=== PATIENT | female | born 1945 | race Caucasian/White ===

== ENCOUNTER 2024-03-21 23:28 | Inpatient (IN) | payer OTHER, SELFPAY ==
[2024-03-21 19:17] VITALS: BP 194/88
[2024-03-21 19:47] LABS: % Basophils 0.3 % (0-2); % Eosinophils 0.2 % (0-6); % Immature Granulocytes 0.5 % (0-0.5); % Lymphocytes 9.5 % (20.5-51.1); % Monocytes 5.5 % (1.7-9.3); Absolute Basophils 0.1 10^3/uL (0-0.2); Absolute Immature Granulocytes 0.1 10^3/uL (0-0.05); Absolute Lymphocytes 1.7 10^3/uL (1.2-3.4); Absolute Neutrophils 14.9 10^3/uL (1.4-6.5); Hematocrit 32.7 % (37.0-47.0); Hemoglobin 10.3 g/dL (12.0-16.0); Mean Corp Hgb Conc. 31.5 g/dL (33.0-37.0); Mean Corpuscular Hgb 28.2 pg (27.0-31.0); Mean Corpuscular Volume 89.6 fL (81.0-99.0); Mean Platelet Volume 10.1 fL (7.4-10.4); Nucleated Red Blood Cells % 0 %; Platelet Count 548 10^3/uL (130-400); Red Blood Cell Count 3.65 10^6/uL (4.20-5.40); Red Cell Dist. Width 14.5 % (11.5-14.5); White Blood Cell Count 17.7 10^3/uL (4.8-10.8)
[2024-03-21 19:56] LABS: Urine Albumin Trace (Neg - Trace); Urine Bilirubin Negative (Negative); Urine Character Clear (Clear); Urine Color Yellow; Urine Glucose Negative (Negative); Urine Ketone Negative (Negative); Urine Leukocyte 2+ (Negative); Urine Nitrite Negative (Negative); Urine Occult Blood 3+ (Negative); Urine Specific Gravity 1.015 (<1.030); Urine Urobilinogen Negative (Neg - 1+)
[2024-03-21 19:59] VITALS: BMI 26.8
[2024-03-21 20:03] LABS: Urine Triple Phosphate Crystal Present
[2024-03-21 20:04] LABS: Urine Bacteria Moderate (Negative); Urine Red Blood Cell 21-25 /HPF (0-2); Urine White Cell >100 /HPF (0-5)
[2024-03-21 20:07] LABS: ALT (SGPT) 17 U/L (0-35); AST (SGOT) 26 U/L (14-36); Albumin 3.7 g/dl (3.5-5.0); Alkaline Phosphatase 100 U/L (38-126); Blood Urea Nitrogen 20 mg/dl (7-17); Chloride 85 mmol/L (98-107); Estimated Creatinine Clearance 35 ml/min; Glucose 135 mg/dl (70-99); Potassium 2.7 mmol/L (3.5-5.1); Sodium 134 mmol/L (135-145); Total Bilirubin 0.6 mg/dl (0.2-1.3); Total Protein 6.8 g/dl (6.3-8.2); eGFR 46.05
[2024-03-21 20:11] VITALS: BP 193/81
[2024-03-21 20:12] LABS: Lactic Acid 2.7 mmol/L (0.7-2.0)
[2024-03-21 20:23] LABS: Calcium 15.6 mg/dl (8.4-10.2); Carbon Dioxide 38 mmol/L (22-30)
--- NOTE | 2024-03-21 20:36 | ED.GENMED ---
History of Present Illness
<Radha Tapia PA-C - Last Filed: 03/21/24 20:54>
General
Chief Complaint: Abdominal Symptoms
Source: family
Exam Limitations: clinical condition
Time Seen by Provider: 03/21/24 20:14
Nursing documentation reviewed up to this point in time: agreed with
History of Present Illness
History of Present Illness:
78-year-old female with a history of colonic perforation secondary to diverticulitis status post colectomy with a colostomy 1.5 month ago at [facility], was hospitalized for about 1 month and then has been home for about 2 weeks presenting for
change in mental status, weakness fatigue, nausea and vomiting x 2. Patient apparently had a good week her first week after being discharged home. She is been home at her house for her daughters been staying with her to help her. Her daughter's
been giving her medications. She has been doing better this week with her eating and her walking around unassisted. But about 2 days ago she seemed not really herself and was not eating well so she went to the doctor. The primary care doctor
diagnosed her with a UTI and put her on an unknown antibiotic which she has been taking since then. She has had 5 total doses but starting last night after the evening dose she vomited. Then today she slept most of the day except for a follow-up
appointment with her surgeon which went okay. She came home and did have some lunch and kept it down and then this evening she got a evening dose of her antibiotic and immediately vomited. Patient is able to answer some questions but she is a
little disoriented at times, she has got a dry mouth, she has been complaining of nausea. There is been no complaints of focal abdominal pain. She has had normal output in her ostomy.
According to the nurse the patient was mildly hypoxic so she was put on 2 L of oxygen, she had an occasional cough. Currently while hospitalized she had oxygen and went home with a tank but the daughter does not know why she needed that and she has
not been using it much since discharge
<Yeni Mazariegos MD - Last Filed: >
Travel History
Have you had any contact with someone who has COVID-19?: No
Do you have any symptoms of coronavirus? Fever > 100 degrees, chills, cough, shortness of breath, sore throat, loss of taste or smell, muscle aches, or headache?: No
Course
<Radha Tapia PA-C - Last Filed: 03/21/24 20:54>
Orders/Labs/Results
Orders:
Orders
03/21/24 19:30
Electrocardiogram (*1) Urgent
Reason for Study: Other
Other Reason for Exam: Possible Sepsis
Cardiac Monitoring- Treatment ONCE
EKG- Treatment ONCE
IV Insert/Care/Rem.- Treatment PRN
Straight cath- Treatment ONCE
O2 Therapy [RESP] Urgent
Titrate/Wean O2 to maintain O2 sat greater than (%): 93
Special Instructions: TO MAINTAIN CONTINUOUS O2 SATS > OR = 93%
Pulse Ox/cont/shift [RESP] Urgent
Quantity: 1
Special Instructions: CONTINUOUS
03/21/24 19:35
Complete Blood Count/With Diff Urgent
Comprehensive Metabolic Panel Urgent
Lactic Acid Q4H
Comment: ON ICE, CANCEL 2ND ORDER IF FIRST LACTIC ACID LEVEL <2
Magnesium Urgent
Blood Culture Q30M
[place] Source: Blood/Venous
Specimen Description:
Comment: FROM 2 SEPARATE SITES
03/21/24 19:47
Urinalysis Reflex To Culture Urgent
Date Specimen was Collected: 03/21/24
Time Specimen was Collected: 19:30
Urine Microscopic Reflex Cult Urgent
Urine Culture Urgent
[place] Source: U
Specimen Description:
Date Specimen was Collected: 03/21/24
Time Specimen was Collected: 19:30
03/21/24 20:00
Blood Culture Q30M
[place] Source: Blood/Venous
Specimen Description:
Comment: FROM 2 SEPARATE SITES
03/21/24 20:34
Add On- LAB Urgent
Tests Added?: magnesium
0.9% Sodium Chloride 1000 ml [Nss] 1,000 ml IV BOLUS
CR Chest - 2 Views Urgent
Comment:
Reason For Exam: cough, hypoxia
03/21/24 20:35
CT Abd/Pel (IV only)-DH only Urgent
Comment:
Reason For Exam: fever, uti, recent surgery, sepsis
03/21/24 20:39
Ionized Calcium Urgent
PTH [Intact PTH Includes Calcium] Urgent
03/21/24 20:41
Piperacillin/Tazo 3.375 Gram [Zosyn] 3.375 gram in 50 ml IV NOW
03/21/24 23:30
Lactic Acid Q4H
Comment: ON ICE, CANCEL 2ND ORDER IF FIRST LACTIC ACID LEVEL <2
Abnormal Lab Results
03/21/24 03/21/24
19:35 19:47
WBC 17.7 H 10^3/uL
(4.8-10.8)
RBC 3.65 L 10^6/uL
(4.20-5.40)
Hgb 10.3 L g/dL
(12.0-16.0)
Hct 32.7 L %
(37.0-47.0)
MCHC 31.5 L g/dL
(33.0-37.0)
Plt Count 548 H 10^3/uL
(130-400)
Abs Immat Gran (auto) 0.1 H 10^3/uL
(0-0.05)
Absolute Neuts (auto) 14.9 H 10^3/uL
(1.4-6.5)
Absolute Monos (auto) 1.0 H 10^3/uL
(0.1-0.6)
Neutrophils % 84.0 H %
(42.2-75.2)
Lymphocytes % 9.5 L %
(20.5-51.1)
Sodium 134 L mmol/L
(135-145)
Potassium 2.7 L* mmol/L
(3.5-5.1)
Chloride 85 L mmol/L
(98-107)
Carbon Dioxide 38 H mmol/L
(22-30)
BUN 20 H mg/dl
(7-17)
Creatinine 1.2 H mg/dL
(0.6-1.0)
Glucose 135 H mg/dl
(70-99)
Lactic Acid 2.7 H mmol/L
(0.7-2.0)
Calcium 15.6 H* mg/dl
(8.4-10.2)
Ur Occult Blood Reflex 3+ A
(Negative)
Leukocyte Esterase Rfl 2+ A
(Negative)
Urine RBC 21-25 A /HPF
(0-2)
Urine WBC (Reflex) >100 A /HPF
(0-5)
Urine Bacteria (Reflex) Moderate A
(Negative)
03/21/24 19:35
03/21/24 19:35
Vital Signs
Initial and Last Documented VS:
Initial Vital Signs
Temp Pulse Resp BP Pulse Ox
98.3 F 92 20 194/88 97
03/21/24 19:17 03/21/24 19:17 03/21/24 19:17 03/21/24 19:17 03/21/24 19:17
Last Documented Vital Signs
Temp Pulse Resp BP Pulse Ox
98.3 F 92 20 194/88 91
03/21/24 19:17 03/21/24 19:17 03/21/24 19:17 03/21/24 19:17 03/21/24 20:10
<Yeni Mazariegos MD - Last Filed: >
Orders/Labs/Results
Orders:
Orders
03/21/24 19:30
Electrocardiogram (*1) Urgent
Reason for Study: Other
Other Reason for Exam: Possible Sepsis
Cardiac Monitoring- Treatment ONCE
EKG- Treatment ONCE
IV Insert/Care/Rem.- Treatment PRN
Straight cath- Treatment ONCE
O2 Therapy [RESP] Urgent
Titrate/Wean O2 to maintain O2 sat greater than (%): 93
Special Instructions: TO MAINTAIN CONTINUOUS O2 SATS > OR = 93%
Pulse Ox/cont/shift [RESP] Urgent
Quantity: 1
Special Instructions: CONTINUOUS
03/21/24 19:35
Complete Blood Count/With Diff Urgent
Comprehensive Metabolic Panel Urgent
Lactic Acid Q4H
Comment: ON ICE, CANCEL 2ND ORDER IF FIRST LACTIC ACID LEVEL <2
Magnesium Urgent
Blood Culture Q30M
[place] Source: Blood/Venous
Specimen Description:
Comment: FROM 2 SEPARATE SITES
03/21/24 19:47
Urinalysis Reflex To Culture Urgent
Date Specimen was Collected: 03/21/24
Time Specimen was Collected: 19:30
Urine Microscopic Reflex Cult Urgent
Urine Culture Urgent
[place] Source: U
Specimen Description:
Date Specimen was Collected: 03/21/24
Time Specimen was Collected: 19:30
03/21/24 20:00
Blood Culture Q30M
[place] Source: Blood/Venous
Specimen Description:
Comment: FROM 2 SEPARATE SITES
03/21/24 20:34
Add On- LAB Urgent
Tests Added?: magnesium
0.9% Sodium Chloride 1000 ml [Nss] 1,000 ml IV BOLUS
CR Chest - 2 Views Urgent
Comment:
Reason For Exam: cough, hypoxia
03/21/24 20:35
CT Abd/Pel (IV only)-DH only Urgent
Comment:
Reason For Exam: fever, uti, recent surgery, sepsis
03/21/24 20:39
Ionized Calcium Urgent
PTH [Intact PTH Includes Calcium] Urgent
03/21/24 20:41
Piperacillin/Tazo 3.375 Gram [Zosyn] 3.375 gram in 50 ml IV NOW
03/21/24 23:30
Lactic Acid Q4H
Comment: ON ICE, CANCEL 2ND ORDER IF FIRST LACTIC ACID LEVEL <2
Abnormal Lab Results
03/21/24 03/21/24
19:35 19:47
WBC 17.7 H 10^3/uL
(4.8-10.8)
RBC 3.65 L 10^6/uL
(4.20-5.40)
Hgb 10.3 L g/dL
(12.0-16.0)
Hct 32.7 L %
(37.0-47.0)
MCHC 31.5 L g/dL
(33.0-37.0)
Plt Count 548 H 10^3/uL
(130-400)
Abs Immat Gran (auto) 0.1 H 10^3/uL
(0-0.05)
Absolute Neuts (auto) 14.9 H 10^3/uL
(1.4-6.5)
Absolute Monos (auto) 1.0 H 10^3/uL
(0.1-0.6)
Neutrophils % 84.0 H %
(42.2-75.2)
Lymphocytes % 9.5 L %
(20.5-51.1)
Sodium 134 L mmol/L
(135-145)
Potassium 2.7 L* mmol/L
(3.5-5.1)
Chloride 85 L mmol/L
(98-107)
Carbon Dioxide 38 H mmol/L
(22-30)
BUN 20 H mg/dl
(7-17)
Creatinine 1.2 H mg/dL
(0.6-1.0)
Glucose 135 H mg/dl
(70-99)
Lactic Acid 2.7 H mmol/L
(0.7-2.0)
Calcium 15.6 H* mg/dl
(8.4-10.2)
Ur Occult Blood Reflex 3+ A
(Negative)
Leukocyte Esterase Rfl 2+ A
(Negative)
Urine RBC 21-25 A /HPF
(0-2)
Urine WBC (Reflex) >100 A /HPF
(0-5)
Urine Bacteria (Reflex) Moderate A
(Negative)
03/21/24 19:35
03/21/24 19:35
Vital Signs
Initial and Last Documented VS:
Initial Vital Signs
Temp Pulse Resp BP Pulse Ox
98.3 F 92 20 194/88 97
03/21/24 19:17 03/21/24 19:17 03/21/24 19:17 03/21/24 19:17 03/21/24 19:17
Last Documented Vital Signs
Temp Pulse Resp BP Pulse Ox
98.3 F 92 20 194/88 91
03/21/24 19:17 03/21/24 19:17 03/21/24 19:17 03/21/24 19:17 03/21/24 20:10
ED Attending Note
<Yeni Mazariegos MD - Last Filed: >
-
Portions of this chart may have been created with voice recognition software.� Occasional wrong word or��sound alike� substitutions may have occurred due to the inherent limitations of voice recognition software.
Discharge Plan
Departure
Prescriptions:
No Action
multivitamin [TAB A RONNIE] Tablet
1 tab PO DAILY
sennosides [senna] 8.6 mg Tablet
17.2 mg PO DAILY
acetaminophen 325 mg Tablet
650 mg PO Q6H PRN (Reason: mild pain/fever)
levothyroxine 25 mcg Tablet
25 mcg PO DAILY
diltiazem HCl 120 mg Tablet
120 mg PO HS
losartan 25 mg Tablet
25 mg PO DAILY
docusate sodium 100 mg Capsule
100 mg PO BID
budesonide 0.5 mg/2 mL Suspension For Nebulization
0.5 mg INHALATION R Q12
furosemide 20 mg Tablet
20 mg PO DAILY
Saccharomyces boulardii [Florastor] 250 mg Capsule
250 mg PO BID
cholecalciferol (vitamin D3) [Vitamin D3] 25 mcg (1,000 unit) Tablet
25 mcg PO DAILY
calcium carbonate-vitamin D3 [Calcium 500 + D (D3)] 500 mg-3.125 mcg (125 unit) Tablet
1 tab PO BID
apixaban 5 mg Tablet
5 mg PO BID
Probiotic 100 billion cell Capsule
1 cap PO MEALS
nitrofurantoin macrocrystal 100 mg Capsule
100 mg PO Q12
bupropion HCl 150 mg Tablet Extended Release 24 Hr
150 mg PO DAILY
Referrals:
UNKNOWN - PT DOES,NOT KNOW [Family Provider] -
Interventions
Interventions:
*Risk Screen - Suicide Last Done: 03/21/24 19:17
*General Assessment Last Done: 03/21/24 19:17
*Neglect/Abuse Screening Last Done: 03/21/24 19:17
ED- Fall Risk Assessment Last Done: 03/21/24 19:17
*ED COVID-19 Vaccine History Last Done: 03/21/24 19:17
NX-Fhuxwh-Lcgexbvtqr Assessment Last Done: 03/21/24 20:10
ED-Female Genitourinary Assessment Last Done: 03/21/24 20:10
Discharge Date and Time
Print Language: TELUGU
[2024-03-21 21:06] LABS: Magnesium 1.9 mg/dl (1.6-2.3)
[2024-03-21] MEDS: NSS 1000 IV (21:06)
[2024-03-21] MEDS: ZOSYN 50 IV (21:06)
[2024-03-21 21:13] LABS: Ionized Calcium 1.97 mMOL/L (1.15-1.33)
[2024-03-21 21:53] LABS: Calcium 15.2 mg/dl (8.4-10.2)
--- NOTE | 2024-03-21 22:18 | HPS.HSE ---
Family Physician
-
Family Physician: Murphy Mcqueen
Chief Complaint
-
Lethargy and altered mental status
History of Present Illness
This is a 78-year-old female who has past medical history that is significant for a recent diverticulitis complicated by colonic perforation status post colectomy and colostomy about 1.5 months ago at outside hospital ([facility]) who now
presents to the emergency department for worsening sleepiness fatigue weakness and nausea vomiting.
Patient apparently had improving symptoms after discharge about 2 weeks ago. However this week she has had increasing sleepiness weakness and fatigue. Today she had nausea and vomiting x 2 that was nonbloody and nonbilious. She denies any acute
abdominal pain. She denies any changes in the color or consistency is from the output of the ostomy bag. The site around the ostomy had no leakage. There is no worsening erythema or exudate. Family reports that she has had complaints of chills
over the last few days. 2 days ago she was diagnosed with a UTI by her primary care physician and was started on antibiotics for which she had taken 5 doses. The exact antibiotic is unknown at this time. Patient was seen in follow-up by surgeon
today who had no issues with the colostomy.
Per family patient output at 22 to almost nothing. She had continued to take her medications which includes calcium supplementation at home. No geno fevers measured at home. They denied any shortness of breath. However the patient is on no
supplemental oxygen since discharge. At the time of discharge he was placed on 2 L however they have not been giving the supplemental oxygen at home. She reports a mild nonproductive cough.
Patient denies having any flank pain. She denies any dysuria hematuria. The diagnosis of UTI was missed based on altered mental status weakness as well as a positive UA. No known cultures.
On arrival in the emergency department the patient was afebrile with temp of 98.3, she was hypertensive to 194/88 with a pulse of 92 and respirate of 20. She was in a 90% on room air.
ECG showed normal sinus rhythm at a rate of [address] or T wave changes. No QT C prolongation either. Labs are notable for a urinalysis that had positive pyuria, hematuria and bacteriuria. She had leukocytosis to 17,000, hemoglobin was
10.3 and platelet count of 548. Chemistries were notable for a potassium of 2.7, a bicarb of 38, BUN of 20 and a creatinine of 1.2 with a glucose of 135. LFTs within normal limits. Calcium was elevated at 15.6 with ionized calcium of 1.97. Mild
elevation in lactic acid to 2.7. CT abd/pelvis pending.
Medical History
Past Medical History
Past Medical History: Reports Arrhythmia, HTN, Hypercholesterolemia and Hypothyroidism
Past Surgical History: Reports Bowel Resection
Social History
Unable to obtain full social history at this time due to: Acuity
Tobacco: Non-smoker
Alcohol: None
Drug: None
Personal: Single
Living: With Family
Employment: Retired
Family History
Family History: Not pertinent
Allergies / Home Medications
Allergies reflects when Allergies were last updated in [facility].
Home Medications with original date entered in [facility]
Allergy/Medication List:
Allergies
Allergy/AdvReac Type Severity Reaction Status Date / Time
No Known Allergies Allergy Verified 03/21/24 19:28
Home Medications
Lactobacillus 40-Bifidobact 3-S.thermophilus 100 billion cell capsule (Probiotic) 1 cap PO MEALS 03/21/24
Saccharomyces boulardii 250 mg capsule (Florastor) 250 mg PO BID 03/21/24
acetaminophen 325 mg tablet 650 mg PO Q6H PRN mild pain/fever 03/21/24
apixaban 5 mg tablet 5 mg PO BID 03/21/24
budesonide 0.5 mg/2 mL suspension for nebulization 0.5 mg inhalation R Q12 03/21/24
bupropion HCl 150 mg 24 hr tablet, extended release 150 mg PO DAILY 03/21/24
calcium carbonate 500 mg-vitamin D3 3.125 mcg (125 unit) tablet 1 tab PO BID 03/21/24
cholecalciferol (vitamin D3) 25 mcg (1,000 unit) tablet (Vitamin D3) 25 mcg PO DAILY 03/21/24
diltiazem HCl 120 mg tablet 120 mg PO HS 03/21/24
docusate sodium 100 mg capsule 100 mg PO BID 03/21/24
furosemide 20 mg tablet 20 mg PO DAILY 03/21/24
levothyroxine 25 mcg tablet 25 mcg PO DAILY 03/21/24
losartan 25 mg tablet 25 mg PO DAILY 03/21/24
multivitamin 1 tab PO DAILY 03/21/24
nitrofurantoin macrocrystal 100 mg capsule 100 mg PO Q12 03/21/24
sennosides 8.6 mg tablet (senna) 17.2 mg PO DAILY 03/21/24
Review of Systems
-
History Source: Patient and Family
Constitutional: Reports Fatigue, Sleep Disturbance and Chills
EENT: Reports No Symptoms
Respiratory: Reports No Symptoms
Cardiac: Reports No Symptoms
Abdomen/GI: Reports Nausea and Vomiting
: Reports No Symptoms
Musculoskeletal: Reports No Symptoms
Skin: Reports No Symptoms
Neurological: Reports No Symptoms
Endocrine: Reports No Symptoms
Hematologic/Lymphatic: Reports No Symptoms
Psych: Reports No Symptoms
Physical Exam
Vital Signs
Vital Signs
Temp Pulse Resp BP Pulse Ox
98.3 F 92 20 194/88 91
03/21/24 19:17 03/21/24 19:17 03/21/24 19:17 03/21/24 19:17 03/21/24 20:10
Physical Exam
General: Well Developed, No Apparent Distress and Chills
HEENT: NormoCephalic, Anicteric, Atraumatic, PERRLA and Oxygen
Respiratory: Clear
Cardiac: S1/S2 and Regular Rhythm
Breast: Deferred by me
GI: Soft, Non Tender, Non Distended, Normal Bowel Sounds and Ostomy
Rectal: Deferred by Provider
Genito-urinary: No costovertebral tender
Musculoskeletal: No Clubbing, No Cyanosis and No Edema
Skin: Warm
Neuro: Awake, Oriented (x3) and Nonfocal/grossly intact
Hematologic/Lymphatic: No Lymphadenopathy
Psych: Calm
Laboratory Results
-
03/21/24 19:35
03/21/24 19:35
Laboratory Results
Lactic Acid 2.7 mmol/L (0.7-2.0) H 03/21/24 19:35
Total Bilirubin 0.6 mg/dl (0.2-1.3) 03/21/24 19:35
AST 26 U/L (14-36) 03/21/24 19:35
ALT 17 U/L (0-35) 03/21/24 19:35
Alkaline Phosphatase 100 U/L (38-126) 03/21/24 19:35
Data Reviewed
-
CT Scan: Report Reviewed by me
Lab Data: Labs Reviewed by me
Old Records: Reviewed
Impression/Plan
-
IMPRESSION:
PLAN:
--- NOTE | 2024-03-21 22:34 | ED.GENMED ---
History of Present Illness
General
Chief Complaint: Abdominal Symptoms
Source: patient
Exam Limitations: none
Time Seen by Provider: 03/21/24 20:14
Nursing documentation reviewed up to this point in time: agreed with
Travel History
Have you had any contact with someone who has COVID-19?: No
Do you have any symptoms of coronavirus? Fever > 100 degrees, chills, cough, shortness of breath, sore throat, loss of taste or smell, muscle aches, or headache?: No
History of Present Illness
History of Present Illness:
The patient is a 78-year-old female who had a recent diverticulitis complicated by colonic perforation and was hospitalized for several weeks at [facility]. The patient is status post colostomy. Patient arrives with family due to
increased sleepiness, fatigue, generalized weakness and nausea and vomiting. Patient experienced 2 episodes of nonbloody vomiting today. Patient denies any worsening abdominal pain. She denies any burning when she urinates. She denies headache
and sore throat. She denies cough.
Past History
Past History
ED Past Medical History: HTN and Other (Diverticulitis)
ED Past Surgical History: Bowel resection
Social History
Tobacco: Non-smoker
Alcohol: None
Drug: None
Personal: Other
Living: with family
Employment: Other
Family History
Family History: Other
Review of Systems
Review of Systems
Allergies reviewed?: Yes
Other source history: family
All Other Systems: ROS reviewed and negative except as documented in HPI and ROS
Constitutional: Reports fatigue
EENT: Reports no symptoms
Respiratory: Reports no symptoms
Cardiac: Reports no symptoms
ABD/GI: Reports nausea and vomiting
: Reports no symptoms
Musculoskeletal: Reports no symptoms
Skin: Reports no symptoms
Neurological: Reports no symptoms
Endocrine: Reports no symptoms
Hematologic/Lymphatic: Reports no symptoms
Psychiatric: Reports no symptoms
Phy Exam
Physical Exam
Physical Exam:
Physical Exam
General: Patient is fully awake, conversational but appears disheveled
Neck: supple.
Heart: s1/s2 regular rate and rhythm,
Lungs: no acute respiratory distress. clear bilaterally
Abdomen: Abdomen is slightly distended. Colostomy bag appears dry and intact
Neuro: alert and oriented. no focal neurological deficits
Skin: no rash
Psychiatric: well kept. interactive and cooperative
Extremities: Trace bilateral edema in legs. Negative Homans' sign.
Course
Orders/Labs/Results
Orders:
Orders
03/21/24 19:30
Electrocardiogram (*1) Urgent
Reason for Study: Other
Other Reason for Exam: Possible Sepsis
Cardiac Monitoring- Treatment ONCE
EKG- Treatment ONCE
IV Insert/Care/Rem.- Treatment PRN
Straight cath- Treatment ONCE
O2 Therapy [RESP] Urgent
Titrate/Wean O2 to maintain O2 sat greater than (%): 93
Special Instructions: TO MAINTAIN CONTINUOUS O2 SATS > OR = 93%
Pulse Ox/cont/shift [RESP] Urgent
Quantity: 1
Special Instructions: CONTINUOUS
03/21/24 19:35
Complete Blood Count/With Diff Urgent
Comprehensive Metabolic Panel Urgent
Lactic Acid Q4H
Comment: ON ICE, CANCEL 2ND ORDER IF FIRST LACTIC ACID LEVEL <2
Magnesium Urgent
Blood Culture Q30M
[place] Source: Blood/Venous
Specimen Description:
Comment: FROM 2 SEPARATE SITES
03/21/24 19:47
Urinalysis Reflex To Culture Urgent
Date Specimen was Collected: 03/21/24
Time Specimen was Collected: 19:30
Urine Microscopic Reflex Cult Urgent
Urine Culture Urgent
[place] Source: U
Specimen Description:
Date Specimen was Collected: 03/21/24
Time Specimen was Collected: 19:30
03/21/24 20:34
Add On- LAB Urgent
Tests Added?: magnesium
0.9% Sodium Chloride 1000 ml [Nss] 1,000 ml IV BOLUS
CR Chest - 2 Views Urgent
Comment:
Reason For Exam: cough, hypoxia
03/21/24 20:35
CT Abd/Pel (IV only)-DH only Urgent
Comment:
Reason For Exam: fever, uti, recent surgery, sepsis
03/21/24 20:41
Piperacillin/Tazo 3.375 Gram [Zosyn] 3.375 gram in 50 ml IV NOW
03/21/24 21:04
Ionized Calcium Urgent
PTH [Intact PTH Includes Calcium] Urgent
Blood Culture Q30M
[place] Source: Blood/Venous
Specimen Description:
Comment: FROM 2 SEPARATE SITES
03/21/24 22:30
Obtain Records As Directed
Dates of Information to be Released: [facility]. 01/26/2024 to 03/21/2024
Type of Information Requested: Entire Record
03/21/24 23:30
Lactic Acid Q4H
Comment: ON ICE, CANCEL 2ND ORDER IF FIRST LACTIC ACID LEVEL <2
Abnormal Lab Results
03/21/24 03/21/24 03/21/24
19:35 19:47 21:04
WBC 17.7 H 10^3/uL
(4.8-10.8)
RBC 3.65 L 10^6/uL
(4.20-5.40)
Hgb 10.3 L g/dL
(12.0-16.0)
Hct 32.7 L %
(37.0-47.0)
MCHC 31.5 L g/dL
(33.0-37.0)
Plt Count 548 H 10^3/uL
(130-400)
Abs Immat Gran (auto) 0.1 H 10^3/uL
(0-0.05)
Absolute Neuts (auto) 14.9 H 10^3/uL
(1.4-6.5)
Absolute Monos (auto) 1.0 H 10^3/uL
(0.1-0.6)
Neutrophils % 84.0 H %
(42.2-75.2)
Lymphocytes % 9.5 L %
(20.5-51.1)
Sodium 134 L mmol/L
(135-145)
Potassium 2.7 L* mmol/L
(3.5-5.1)
Chloride 85 L mmol/L
(98-107)
Carbon Dioxide 38 H mmol/L
(22-30)
BUN 20 H mg/dl
(7-17)
Creatinine 1.2 H mg/dL
(0.6-1.0)
Glucose 135 H mg/dl
(70-99)
Lactic Acid 2.7 H mmol/L
(0.7-2.0)
Calcium 15.6 H* mg/dl 15.2 H* mg/dl
(8.4-10.2) (8.4-10.2)
Ionized Calcium 1.97 H* mMOL/L
(1.15-1.33)
Ur Occult Blood Reflex 3+ A
(Negative)
Leukocyte Esterase Rfl 2+ A
(Negative)
Urine RBC 21-25 A /HPF
(0-2)
Urine WBC (Reflex) >100 A /HPF
(0-5)
Urine Bacteria (Reflex) Moderate A
(Negative)
03/21/24 19:35
03/21/24 19:35
Vital Signs
Initial and Last Documented VS:
Initial Vital Signs
Temp Pulse Resp BP Pulse Ox
98.3 F 92 20 194/88 97
03/21/24 19:17 03/21/24 19:17 03/21/24 19:17 03/21/24 19:17 03/21/24 19:17
Last Documented Vital Signs
Temp Pulse Resp BP Pulse Ox
98.3 F 92 20 194/88 91
03/21/24 19:17 03/21/24 19:17 03/21/24 19:17 03/21/24 19:17 03/21/24 20:10
MDM/Problems Addressed
Differential Diagnosis Includes:
UTI, bowel perforation, hyponatremia
MDM/Problems Addressed:
Patient presents with acute generalized weakness, fatigue, and vomiting
Chronic conditions affecting care: Previous abdomnial surgery
Acute Exacerbation and/or Progression of Chronic Illness:
Patient is acutely hypertensive, however, there is no sign clinically of CHF or neurological deficit
Acute Exacerbation and/or Progression of Chronic Illness: HTN
*Radiology
Radiology exam reviewed: radiology read reviewed
*Pulse Oximetry
Patient hypoxic: yes
*EKG
Interpreted by ED Provider?: Yes
Comparison EKG: no comparison EKG present
Rate: normal
Rhythm: sinus
[place]: left axis deviation
Interval: normal interval
QRS Pattern: normal QRS
Ischemia: non-specific ST changes
*Furniture Removalist'S Assistant Interpretation
Rate: normal
Interpretation: normal
Rhythm: sinus
*Critical Care Note
Total Time (30-74mins, 75-104mins- exclusive of procedures): 45 minutes
comment:
45 minutes critical care given to the patient including frequent reassessments of the patient, reviewing her blood work, CT report, discussing the case with the patient's son-in-law as well as reviewing the case with hospitalist
Data Reviewed
Source: patient and family
Patient Management
Social determinants of health affecting care: Living situation and Strong social support
Discussion with other providers: Hospitalist
ED Attending Note
-
Portions of this chart may have been created with voice recognition software.� Occasional wrong word or��sound alike� substitutions may have occurred due to the inherent limitations of voice recognition software.
Discharge Plan
Departure
Patient Disposition: Admit
Date of Disposition: 03/21/24
Time of Disposition: 23:08
Admit to: Telemetry
Presentation/result/management discussed w/ accepting MD/DO: Hospitalist
Condition: Fair
Covid-19: Not Applicable
Discharge Problem:
UTI (urinary tract infection), Sepsis, Acute hypercalcemia, Acute hypokalemia
Prescriptions:
No Action
multivitamin [TAB A RONNIE] Tablet
1 tab PO DAILY
sennosides [senna] 8.6 mg Tablet
17.2 mg PO DAILY
acetaminophen 325 mg Tablet
650 mg PO Q6H PRN (Reason: mild pain/fever)
levothyroxine 25 mcg Tablet
25 mcg PO DAILY
diltiazem HCl 120 mg Tablet
120 mg PO HS
losartan 25 mg Tablet
25 mg PO DAILY
docusate sodium 100 mg Capsule
100 mg PO BID
budesonide 0.5 mg/2 mL Suspension For Nebulization
0.5 mg INHALATION R Q12
furosemide 20 mg Tablet
20 mg PO DAILY
Saccharomyces boulardii [Florastor] 250 mg Capsule
250 mg PO BID
cholecalciferol (vitamin D3) [Vitamin D3] 25 mcg (1,000 unit) Tablet
25 mcg PO DAILY
calcium carbonate-vitamin D3 [Calcium 500 + D (D3)] 500 mg-3.125 mcg (125 unit) Tablet
1 tab PO BID
apixaban 5 mg Tablet
5 mg PO BID
Probiotic 100 billion cell Capsule
1 cap PO MEALS
nitrofurantoin macrocrystal 100 mg Capsule
100 mg PO Q12
bupropion HCl 150 mg Tablet Extended Release 24 Hr
150 mg PO DAILY
Referrals:
UNKNOWN - PT DOES,NOT KNOW [Unknown Provider] -
Interventions
Interventions:
*Risk Screen - Suicide Last Done: 03/21/24 19:17
*General Assessment Last Done: 03/21/24 19:17
*Neglect/Abuse Screening Last Done: 03/21/24 19:17
ED- Fall Risk Assessment Last Done: 03/21/24 19:17
*ED COVID-19 Vaccine History Last Done: 03/21/24 19:17
NA-Fvngjw-Rlprhkogie Assessment Last Done: 03/21/24 20:10
ED-Female Genitourinary Assessment Last Done: 03/21/24 20:10
Discharge Date and Time
Print Language: SWEDISH
--- NOTE | 2024-03-21 22:37 | HPS.HSE ---
Family Physician
-
Family Physician: Murphy Mcqueen
Chief Complaint
-
Nausea vomiting, lethargy and altered mental status
History of Present Illness
This is a 78-year-old female with a past medical history that is significant for a recent perforated diverticulitis status post colectomy and end colostomy about 1.5 months ago at [facility] who now presents to the emergency department
with a number of complaints including weakness fatigue and nausea vomiting and chills.
Patient spent about 1 month tolerating hospital and was discharged about 2 weeks ago. Initially was doing well. However over the last week she has had decreasing p.o. intake, worsening weakness fatigue and sleepiness as well as 1 day of nausea and
vomiting. The vomiting was nonbloody and nonbilious. She denied any abdominal pain. She denies any diarrhea. There has been no change in the output of her ostomy. She had chills at home but denies any geno fevers. Patient reported that she
was seen by PMD about 2 days ago and was diagnosed with a UTI. She was started on antibiotics (unknown) and had taken 5 doses. Patient herself denies dysuria, incontinence, flank pain or urinary frequency. She denies prior history of recurrent
urinary tract infections.
She was seen by her surgeon today. No abnormalities noted in terms of the surgical procedure. The site was without dehiscence, exudate or erythema. The ostomy bag was intact. She had no acute abdominal symptoms including abdominal pain.
[facility] the patient was on 2 L of oxygen. However oxygen was not continued. She arrived in the emergency department slightly hypoxic 90%. Improved to 90% on 2 L. She denies any cough.
In the ED she was afebrile with a temp of 98.3, hypertensive to 194/88, pulse rate was 92 respiratory was 20 and oxygen saturation was 90% on room air. ECG with normal sinus rhythm at a rate of [address] or T wave changes and no QTc
prolongation. She had a positive UA with pyuria, bacteriuria and hematuria. Labs are notable for leukocytosis to 17,000 with a left shift. Hemoglobin was stable at 10.3 platelet count of 548. Electrolytes are notable for a potassium of 2.7,
bicarb of 38, BUN of 20 and a creatinine of 1.2 (unknown baseline). Calcium was elevated at 15.6 with an is calcium of 1.97. LFTs within normal limits.
Medical History
Past Medical History
Past Medical History: Reports HTN
Past Surgical History: Reports Bowel Resection
Social History
Tobacco: Non-smoker
Alcohol: None
Drug: None
Living: With Family
Employment: Retired
Family History
Family History: Not pertinent
Allergies / Home Medications
Allergies reflects when Allergies were last updated in [facility].
Home Medications with original date entered in [facility]
Allergy/Medication List:
Allergies
Allergy/AdvReac Type Severity Reaction Status Date / Time
No Known Allergies Allergy Verified 03/21/24 19:28
Home Medications
Lactobacillus 40-Bifidobact 3-S.thermophilus 100 billion cell capsule (Probiotic) 1 cap PO MEALS 03/21/24
Saccharomyces boulardii 250 mg capsule (Florastor) 250 mg PO BID 03/21/24
acetaminophen 325 mg tablet 650 mg PO Q6H PRN mild pain/fever 03/21/24
apixaban 5 mg tablet 5 mg PO BID 03/21/24
budesonide 0.5 mg/2 mL suspension for nebulization 0.5 mg inhalation R Q12 03/21/24
bupropion HCl 150 mg 24 hr tablet, extended release 150 mg PO DAILY 03/21/24
calcium carbonate 500 mg-vitamin D3 3.125 mcg (125 unit) tablet 1 tab PO BID 03/21/24
cholecalciferol (vitamin D3) 25 mcg (1,000 unit) tablet (Vitamin D3) 25 mcg PO DAILY 03/21/24
diltiazem HCl 120 mg tablet 120 mg PO HS 03/21/24
docusate sodium 100 mg capsule 100 mg PO BID 03/21/24
furosemide 20 mg tablet 20 mg PO DAILY 03/21/24
levothyroxine 25 mcg tablet 25 mcg PO DAILY 03/21/24
losartan 25 mg tablet 25 mg PO DAILY 03/21/24
multivitamin 1 tab PO DAILY 03/21/24
nitrofurantoin macrocrystal 100 mg capsule 100 mg PO Q12 03/21/24
sennosides 8.6 mg tablet (senna) 17.2 mg PO DAILY 03/21/24
Review of Systems
-
History Source: Patient and Family
Constitutional: Reports Fatigue, Sleep Disturbance and Chills
EENT: Reports No Symptoms
Respiratory: Reports No Symptoms
Cardiac: Reports No Symptoms
Abdomen/GI: Reports Nausea and Vomiting
: Reports No Symptoms
Musculoskeletal: Reports No Symptoms
Skin: Reports No Symptoms
Neurological: Reports Weakness
Hematologic/Lymphatic: Reports No Symptoms
Psych: Reports Calm
Physical Exam
Vital Signs
Vital Signs
Temp Pulse Resp BP Pulse Ox
98.3 F 92 20 194/88 91
03/21/24 19:17 03/21/24 19:17 03/21/24 19:17 03/21/24 19:17 03/21/24 20:10
Physical Exam
General: Well Developed, Well Nourished, No Apparent Distress and Chills
HEENT: NormoCephalic, Anicteric, Atraumatic, PERRLA, Grill Conjunctivae, Neck Nontender and Oxygen
Respiratory: Clear
Cardiac: S1/S2 and Regular Rhythm
Breast: Deferred by me
GI: Soft, Non Tender, Non Distended, Normal Bowel Sounds and Ostomy
Rectal: Deferred by Provider
Genito-urinary: No costovertebral tender
Musculoskeletal: No Clubbing, No Cyanosis and No Edema
Skin: Warm
Neuro: AO x 3 and Nonfocal/grossly intact
Hematologic/Lymphatic: No Lymphadenopathy
Psych: Calm
Laboratory Results
-
03/21/24 19:35
03/21/24 19:35
Laboratory Results
Lactic Acid 2.7 mmol/L (0.7-2.0) H 03/21/24 19:35
Total Bilirubin 0.6 mg/dl (0.2-1.3) 03/21/24 19:35
AST 26 U/L (14-36) 03/21/24 19:35
ALT 17 U/L (0-35) 03/21/24 19:35
Alkaline Phosphatase 100 U/L (38-126) 03/21/24 19:35
Data Reviewed
-
CT Scan: Report Reviewed by me
Medical Tests (Nuc Med, Echo, EKG etc): Image Personally Visualized and interpreted
Lab Data: Labs Reviewed by me
Old Records: Requested
Impression/Plan
-
IMPRESSION:
78 F with h/o recent colonic diverticulitis with perforation s/p colectomy and end colostomy 1.5 months ago at [facility]. She is here with fatigue, weakness, decreased po intake, chills. Seen by surgeon today and no findings of any abnormality
at surgical site. Seen by pmd 2 days ago and diagnosed with UTI s/p abx x 5 doses (unknown med). She is here with multiple issues including cystitis/pyelonephritis, hypercalcemia, hypokalemia, dehydration, alkalosis and possibly stone.
PLAN:
1. Cystitis - Complicated cystitis with possibly pyelonephritis. Presumed failure of outpatient antibiotics. Possibly complicated by kidney stones in the setting of hypercalcemia.
- admitting to telemetry due to electrolyte abnormalities
- blood, urine cx sent
- agree with continuation of zosyn for now pending CT scan to rule out any acute intraabdominal process
- rule out kidney stones on w/ CT scan
2. 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
- IV NS at 125 ml/hr for now (hypertensive)
- diet as tolerated.
- holding calcium carbonate
3. Hypercalcemia - Patient dehydrated and on continued vitamid d and calcium supplementation. Moderate hypercalcemia with iCa of 1.97.
- given symptoms and limited ability to give fluids will give calcitonin
- continue iv fluids
- check ipth and vitamin d
- holding calcium and vitamin d supplementation
4. Hypokalemia - Suspect due to dehydration and on low dose furosemide. Magnesium level of 1.9 ok.
- replete K (40meq iv and 40meq po)
5. HTN - Patient quite hypertensive to 200 systolic. No acute symptoms.
- continue losartan 20
- diltiazem 120
- iv hydralazine 10mg prn SBP > 180
6. AFIB - Patient on apixaban 5 bid and diltiazem. Likely new dgx afib but family unsure. Rate controlled currently.
- continue ac and diltiazem for now
- requested records from outside hospital
7. Colectomy - Despite examination earlier by surgeon, CT scan shows multiple findings (Inflammation and foci of soft tissue gas along the midline anterior abdominal wall incision, which may be postoperative or infectious.
2. Segments of infectious or inflammatory enteritis of the distal small bowel.
3. Left hemicolectomy and left upper quadrant colostomy.
4. Mild ill-defined inflammatory fat stranding throughout the mesenteric fat of the abdomen.
5. Small airspace opacity in the left lower lobe for which differential considerations would include mild pneumonitis/pneumonia, a pulmonary infarction, or other inflammatory process)
- continue iv zosyn
- surgery consult in am
- check procalcitionin
-holding buproproprion
DVT PPX - apixaban
Code status - Full Code
[2024-03-21] MEDS: KLOR-CON 40 MEQ PO (23:31)
[2024-03-22] VITALS (9 sets, daily range): BP systolic 141–214; BP diastolic 75–97; BMI 25.4
--- NOTE | 2024-03-22 00:04 | ED.GENMED ---
History of Present Illness
General
Chief Complaint: Abdominal Symptoms
Source: patient
Exam Limitations: none
Time Seen by Provider: 03/21/24 20:14
Nursing documentation reviewed up to this point in time: agreed with
Travel History
Have you had any contact with someone who has COVID-19?: No
Do you have any symptoms of coronavirus? Fever > 100 degrees, chills, cough, shortness of breath, sore throat, loss of taste or smell, muscle aches, or headache?: No
History of Present Illness
History of Present Illness:
78 y/o F with h/o recent perforated diverticulitis requiring colectomy approx > 1 mo ago at [facility]
hospitalized for 1 mo
d/c home about 2 weeks ago
seems to be worsening in the past 2 days with fatigue, nausea, sleepiness, and went to PCP 2 days ago and was told she had UTI
given unknown abx x 5 doses but started vomiting yesterday after night time dose and then was able to keep down 1 dose today but then vomited again after the PM dose
she has had genrealiezd fatigue, confusion, nausea, sleepiness
she went to her surgeon during the day and had a check up and was doin well
but this everning she is worse
pt has not had fever, diarrhea, bloody stool, abdominal pain, cough, headache
she had been wearin go2 while in the hosptial but then didn't need it at home.
Past History
Past History
ED Past Medical History: HTN and Other (Diverticulitis)
ED Past Surgical History: Bowel resection
Social History
Tobacco: Non-smoker
Alcohol: None
Drug: None
Personal: Other
Living: with family
Employment: Other
Family History
Family History: Other
Review of Systems
Review of Systems
Allergies reviewed?: Yes
All Other Systems: Not applicable
Phy Exam
Physical Exam
Physical Exam:
GENERAL: sleepy, groggy
EYE: pupils equal and reactive
NECK: Supple
ENT: o/p clr, dry moth.
CARDIAC: Regular rate and rhythm .
LUNGS: Clear breath sounds bilaterally, no acute respiratory distress, no wheezes/rales/rhonchi
ABDOMEN: Soft, incision healing, no dehiscence; left colostomy stoma pink, brown stool in bag without focal tenderness, no r/g, no cvat, normal bowel sounds
NEUROLOGICAL: Alert and oriented, no focal neuro deficits
SKIN: Warm and dry, skin intact. incisino closed
MUSCULOSKELETAL: No edema, well perfused. neg paty's sign
PSYCH: Normal and appropriate interaction.
Course
Orders/Labs/Results
Orders:
Orders
03/21/24 19:30
Electrocardiogram (*1) Urgent
Reason for Study: Other
Other Reason for Exam: Possible Sepsis
Cardiac Monitoring- Treatment ONCE
EKG- Treatment ONCE
IV Insert/Care/Rem.- Treatment PRN
Straight cath- Treatment ONCE
O2 Therapy [RESP] Urgent
Titrate/Wean O2 to maintain O2 sat greater than (%): 93
Special Instructions: TO MAINTAIN CONTINUOUS O2 SATS > OR = 93%
Pulse Ox/cont/shift [RESP] Urgent
Quantity: 1
Special Instructions: CONTINUOUS
03/21/24 19:35
Complete Blood Count/With Diff Urgent
Comprehensive Metabolic Panel Urgent
Lactic Acid Q4H
Comment: ON ICE, CANCEL 2ND ORDER IF FIRST LACTIC ACID LEVEL <2
Magnesium Urgent
Blood Culture Q30M
PEY[place] Source: Blood/Venous
Specimen Description:
Comment: FROM 2 SEPARATE SITES
03/21/24 19:47
Urinalysis Reflex To Culture Urgent
Date Specimen was Collected: 03/21/24
Time Specimen was Collected: 19:30
Urine Microscopic Reflex Cult Urgent
Urine Culture Urgent
PEYTON Source: U
Specimen Description:
Date Specimen was Collected: 03/21/24
Time Specimen was Collected: 19:30
03/21/24 20:34
Add On- LAB Urgent
Tests Added?: magnesium
0.9% Sodium Chloride 1000 ml [Nss] 1,000 ml IV BOLUS
CR Chest - 2 Views Urgent
Comment:
Reason For Exam: cough, hypoxia
03/21/24 20:35
CT Abd/Pel (IV only)-DH only Urgent
Comment:
Reason For Exam: fever, uti, recent surgery, sepsis
03/21/24 20:41
Piperacillin/Tazo 3.375 Gram [Zosyn] 3.375 gram in 50 ml IV NOW
03/21/24 21:04
Ionized Calcium Urgent
PTH [Intact PTH Includes Calcium] Urgent
Blood Culture Q30M
PE[place] Source: Blood/Venous
Specimen Description:
Comment: FROM 2 SEPARATE SITES
03/21/24 22:30
Obtain Records As Directed
Dates of Information to be Released: [facility]. 01/26/2024 to 03/21/2024
Type of Information Requested: Entire Record
03/21/24 22:56
Admit/Transfer Patient As Directed
Co-Sign Provider:
Level of Care: Inpatient admission
Assign to:: Telemetry
Physician / Group: Hospitalist
Diagnosis: Pyelonephritis, hypercalcema
Reason for Telemetry: Other
Other Reason for Telemetry: hypokalemia
Date to Stop Telemetry: 03/23/24
Time to Stop Telemetry: 11:00
Reason for Hospitalization: Pyelonephritis, failure of outpatient tx
Expected length of stay greater than two midnights?: Yes
ELOS- Estimated Length of Stay in days: 2
I certify the patient meets the requirements for IP care: Yes
03/21/24 23:00
Code Status As Directed
Resuscitation Status: Full Code
03/21/24 23:18
Potassium Chloride Powder [Klor-Con] 40 meq PO NOW STA
Potassium Chloride [KCl] 20 meq 0.9% Sodium Chloride 150 ml [Nss] 150 ml IV NOW
03/21/24 23:30
Lactic Acid Q4H
Comment: ON ICE, CANCEL 2ND ORDER IF FIRST LACTIC ACID LEVEL <2
03/22/24 03:00
Potassium Chloride [KCl] 20 meq 0.9% Sodium Chloride 150 ml [Nss] 150 ml IV NOW
03/23/24 11:00
DC Protocol for Telemetry ONCE
Abnormal Lab Results
03/21/24 03/21/24 03/21/24
19:35 19:47 21:04
WBC 17.7 H 10^3/uL
(4.8-10.8)
RBC 3.65 L 10^6/uL
(4.20-5.40)
Hgb 10.3 L g/dL
(12.0-16.0)
Hct 32.7 L %
(37.0-47.0)
MCHC 31.5 L g/dL
(33.0-37.0)
Plt Count 548 H 10^3/uL
(130-400)
Abs Immat Gran (auto) 0.1 H 10^3/uL
(0-0.05)
Absolute Neuts (auto) 14.9 H 10^3/uL
(1.4-6.5)
Absolute Monos (auto) 1.0 H 10^3/uL
(0.1-0.6)
Neutrophils % 84.0 H %
(42.2-75.2)
Lymphocytes % 9.5 L %
(20.5-51.1)
Sodium 134 L mmol/L
(135-145)
Potassium 2.7 L* mmol/L
(3.5-5.1)
Chloride 85 L mmol/L
(98-107)
Carbon Dioxide 38 H mmol/L
(22-30)
BUN 20 H mg/dl
(7-17)
Creatinine 1.2 H mg/dL
(0.6-1.0)
Glucose 135 H mg/dl
(70-99)
Lactic Acid 2.7 H mmol/L
(0.7-2.0)
Calcium 15.6 H* mg/dl 15.2 H* mg/dl
(8.4-10.2) (8.4-10.2)
Ionized Calcium 1.97 H* mMOL/L
(1.15-1.33)
Ur Occult Blood Reflex 3+ A
(Negative)
Leukocyte Esterase Rfl 2+ A
(Negative)
Urine RBC 21-25 A /HPF
(0-2)
Urine WBC (Reflex) >100 A /HPF
(0-5)
Urine Bacteria (Reflex) Moderate A
(Negative)
03/21/24 19:35
03/21/24 19:35
Vital Signs
Initial and Last Documented VS:
Initial Vital Signs
Temp Pulse Resp BP Pulse Ox
98.3 F 92 20 194/88 97
03/21/24 19:17 03/21/24 19:17 03/21/24 19:17 03/21/24 19:17 03/21/24 19:17
Last Documented Vital Signs
Temp Pulse Resp BP Pulse Ox
98.3 F 72 21 187/92 98
03/21/24 19:17 03/22/24 00:15 03/22/24 00:15 03/22/24 00:00 03/22/24 00:00
MDM/Problems Addressed
Differential Diagnosis Includes:
urosepsis, hypokalemia, dehydratino, bacteriemia
MDM/Problems Addressed:
78 y/o F with h/o recent colon resection
presnets with nasua and fatigue
2 days worsening - n/v x 2
dx uti by pcp 2 days ago on abx
afebrile, not hypotensive, sleeping but arousable, somewhat drowsy, dry appearing, abdomen with well healing incision and colostomy that appears pink, brown stool in the bag
nontender abdomen
urine is +
hypercalcemia and hypokalemia
unclear etiology for elevated calcium - she does take oral calcium supp
mag normal
ivf, k repletion and abx for presumed urosepsis
*Critical Care Note
Total Time (30-74mins, 75-104mins- exclusive of procedures): Not Applicable
ED Attending Note
-
Portions of this chart may have been created with voice recognition software.� Occasional wrong word or��sound alike� substitutions may have occurred due to the inherent limitations of voice recognition software.
Discharge Plan
Departure
Patient Disposition: Admit
Date of Disposition: 03/21/24
Time of Disposition: 23:08
Admit to: Telemetry
Presentation/result/management discussed w/ accepting MD/DO: Hospitalist
Condition: Fair
Covid-19: Not Applicable
Discharge Problem:
UTI (urinary tract infection), Sepsis, Acute hypercalcemia, Acute hypokalemia
Interventions
Interventions:
*Risk Screen - Suicide Last Done: 03/21/24 19:17
*General Assessment Last Done: 03/21/24 19:17
*Neglect/Abuse Screening Last Done: 03/21/24 19:17
ED- Fall Risk Assessment Last Done: 03/21/24 19:17
*ED COVID-19 Vaccine History Last Done: 03/21/24 19:17
ZD-Iuzskh-Fqtfwxmbgm Assessment Last Done: 03/21/24 20:10
ED-Female Genitourinary Assessment Last Done: 03/21/24 20:10
[2024-03-22 00:36] LABS: Lactic Acid 1.5 mmol/L (0.7-2.0)
[2024-03-22] MEDS: NSS 1000 IV ×2 (01:06→15:03)
[2024-03-22] MEDS: ZOSYN 50 IV ×4 (01:13→19:51)
[2024-03-22] MEDS: CALCIMAR/CALCITONIN 400 UNITS/ 2 ML 100 UNITS IM ×3 (01:30→19:49)
[2024-03-22] MEDS: ZOFRAN 4 MG IV (02:18)
[2024-03-22] MEDS: KCL 270 MEQ IV ×2 (02:28→16:10)
[2024-03-22 06:00] LABS: Hemoglobin 9.8 g/dL (12.0-16.0); Mean Corp Hgb Conc. 31.6 g/dL (33.0-37.0); Mean Corpuscular Hgb 28.6 pg (27.0-31.0); Mean Corpuscular Volume 90.4 fL (81.0-99.0); Mean Platelet Volume 10.3 fL (7.4-10.4); Platelet Count 522 10^3/uL (130-400); Red Blood Cell Count 3.43 10^6/uL (4.20-5.40); Red Cell Dist. Width 14.5 % (11.5-14.5); White Blood Cell Count 15.4 10^3/uL (4.8-10.8)
[2024-03-22 06:50] LABS: Blood Urea Nitrogen 16 mg/dl (7-17); Calcium 13.9 mg/dl (8.4-10.2); Carbon Dioxide 39 mmol/L (22-30); Chloride 97 mmol/L (98-107); Estimated Creatinine Clearance 34 ml/min; Glucose 141 mg/dl (70-99); Magnesium 1.9 mg/dl (1.6-2.3); Potassium 3.2 mmol/L (3.5-5.1); Sodium 141 mmol/L (135-145); eGFR 51.11
[2024-03-22] MEDS: SYNTHROID 25 MCG PO (07:40)
[2024-03-22] MEDS: PULMICORT 0.5 MG INH ×2 (07:53→20:50)
[2024-03-22] MEDS: SENOKOT 17.1999999999999993 MG PO (08:06)
[2024-03-22] MEDS: COZAAR 25 MG PO (08:06)
[2024-03-22] MEDS: COLACE 100 MG PO ×2 (08:07→19:50)
[2024-03-22] MEDS: ELIQUIS 5 MG PO ×2 (08:07→19:50)
--- NOTE | 2024-03-22 11:45 | CON.GS ---
Addendum entered and electronically signed by Yoan Shook MD 03/22/24 12:42:
I saw and examined the patient.
The [employer]'s note was reviewed and I agree with the note.
Comment: No abdominal complaint. CC seems to be confusion and fatigue. Abd exam benign. Well healed scar. Imaging without acute intra-abdominal findings requiring surgical mgmt. No role for surgery here, suspect UTI is the source. surgery will s/o,
pls call with ?s
Original Note:
Consultation
-
Date/Time Consultation Requested: 03/22/24 0126
Requesting Provider: Katarzyna Brown
Performing Provider: Krys Shook
Reason for Consultation: s/p colectomy at [facility], possibly incision site abscess vs post op
Medical History
-
Chief Complaint: confusion, tired
History of Present Illness:
This is a 78 yo female who was admitted 02/11/24 to [facility] with septic shock from perforated diverticulitis who underwent Lida's procedure at that time for management. Her course of stay was complicated by development of PE for which she
has been on Apixaban for management. She was discharged to SNF on O2 therapy and subsequently discharged to home with family. She was followed by endocrinology for hypothyroidism as well during her hospital stay with TSH of 37.8. She presents this
admission through the ED with reported increasing fatigue and nausea and vomiting. She was also reportedly recently seen by her surgeon in follow up with no issues noted during her visit. On exam, she denies active nausea. She reports that she is
confused. She is able to state the date and her name but was unsure where she was. Her incision is intact and well approximated. There is a pinpoint area along the incision with some minimal SSF drainage just below the umbilicus without purulence
noted. There is no erythema. The colostomy is pink, budded and with stool/flatus noted within the appliance. She is denying abdominal pain currently.
Past Medical History
Past Medical History: Arrhythmias (afib), Diverticulitis, HTN, Hypercholesterolemia, Hypothyroidism and Other (PE 01/2024)
Past Surgical History: Bowel Resection (Lida's January 2024)
Social History
Tobacco: Non-Smoker
Alcohol: None
Family History
Family History: Reviewed & Not Pertinent
Allergies / Home Medications
Allergy/AdvReac Type Severity Reaction Status Date / Time
No Known Allergies Allergy Verified 03/21/24 19:28
�Medication �Instructions �Recorded �Confirmed �Type
Lactobacillus 40-Bifidobact 1 cap PO MEALS probiotic 03/21/24 03/21/24 History
3-S.thermophilus 100 billion cell
capsule (Probiotic)
Saccharomyces boulardii 250 mg 250 mg PO BID probiotic 03/21/24 03/21/24 History
capsule (Florastor)
acetaminophen 325 mg tablet 650 mg PO Q6H PRN mild pain/fever 03/21/24 03/21/24 History
apixaban 5 mg tablet 5 mg PO BID Blood Clot 03/21/24 03/21/24 History
Prevention/Tx
budesonide 0.5 mg/2 mL suspension 0.5 mg inhalation R Q12 03/21/24 03/21/24 History
for nebulization Lung/Breathing Issues
bupropion HCl 150 mg 24 hr tablet, 150 mg PO DAILY mental health 03/21/24 03/21/24 History
extended release
calcium carbonate 500 mg-vitamin 1 tab PO BID Supplement 03/21/24 03/21/24 History
D3 3.125 mcg (125 unit) tablet
cholecalciferol (vitamin D3) 25 25 mcg PO DAILY Supplement 03/21/24 03/21/24 History
mcg (1,000 unit) tablet (Vitamin
D3)
diltiazem HCl 120 mg tablet 120 mg PO HS Blood Pressure 03/21/24 03/21/24 History
docusate sodium 100 mg capsule 100 mg PO BID Constipation 03/21/24 03/21/24 History
furosemide 20 mg tablet 20 mg PO DAILY Fluid 03/21/24 03/21/24 History
Retention/Swelling
levothyroxine 25 mcg tablet 25 mcg PO DAILY Thyroid 03/21/24 03/21/24 History
losartan 25 mg tablet 25 mg PO DAILY Blood Pressure 03/21/24 03/21/24 History
multivitamin 1 tab PO DAILY Supplement 03/21/24 03/21/24 History
nitrofurantoin macrocrystal 100 mg 100 mg PO Q12 urinary tract 03/21/24 03/21/24 History
capsule infection
sennosides 8.6 mg tablet (senna) 17.2 mg PO DAILY Constipation 03/21/24 03/21/24 History
Review of Systems
-
Unable to obtain full review of systems at this time due to: Acuity
History Source: Patient, Family and Other (Prior hospitalization records)
All other systems: Negative unless noted
A 10 point review of systems was completed, and was negative except as per HPI.
Physical Exam
Vital Signs
Temp Pulse Resp BP Pulse Ox
97.4 F 63 16 171/75 100
03/22/24 07:30 03/22/24 09:24 03/22/24 07:57 03/22/24 09:24 03/22/24 07:57
03/21/24 03/22/24 03/23/24
06:59 06:59 06:59
Actual Weight 64.909 kg
Body Mass Index (BMI) 25.4
Lab Results
03/22/24 05:53
03/22/24 05:53
WBC 15.4 10^3/uL (4.8-10.8) H 03/22/24 05:53
Hgb 9.8 g/dL (12.0-16.0) L 03/22/24 05:53
Hct 31.0 % (37.0-47.0) L 03/22/24 05:53
Plt Count 522 10^3/uL (130-400) H 03/22/24 05:53
Abs Immat Gran (auto) 0.1 10^3/uL (0-0.05) H 03/21/24 19:35
Neutrophils % 84.0 % (42.2-75.2) H 03/21/24 19:35
Physical Exam
General: Other (disheveled)
HEENT: Normocephalic; Negative Moist Mucous Membranes
Respiratory: Non Labored Respirations
GI: Soft, Non Tender, Non Distended, Incisions (well approximated midline incision which is healing well. small area just below umbilicus with ssf driaing. No purulence or erythema. No fluctuance or induration. ) and Other (Stoma pink, budded,
viable and with flatus/stool outputs in appliance)
Skin: Warm and Dry
Neuro: Awake, Alert and Other (ox2, needed reoriented to place)
Psych: Calm
Data Reviewed
-
CT Scan: Image Personally Visualized and interpreted, Report Reviewed by me, Discussed with Physician, Discussed with Patient and Discussed with Family
Labs: Labs Reviewed by me, Discussed with Physician, Discussed with Patient and Discussed with Family
Old Records: Reviewed
Assessment / Plan
-
Assessment:
This is a 78 yo female who was admitted 02/11/24 to [facility] with septic shock from perforated diverticulitis who underwent Lida's procedure at that time for management. Her course of stay was complicated by development of new onset AFib as
well as PE for which she has been on Apixaban for management. She was discharged to SNF on O2 therapy and subsequently discharged to home with family.
She presents this admission through the ED with reported increasing fatigue and nausea and vomiting. She is confused and lethargic but awakens to name and able to be reoriented. Work up with leukocytosis, electrolyte disturbances and abnormal UA. On
antibiotics for possible UTI and PNA. Seen in consult today as abdominal CT imaging reviewed with ?enteritis and some inflammation underlying the incision. Stoma with good output and abdominal exam relatively benign. Midline surgical incision is
healing well without evidence of infection or dehiscence.
Plan:
No indication for surgical intervention at this time
Continue with local incisional and stoma care
Continue regular diet as tolerated
ABX as per primary team
Surgery team to follow peripherally, please call with questions and concerns
--- NOTE | 2024-03-22 12:27 | WOUNDNOTE ---
[facility] RN NOTE: Reviewed chart and met with patient. Patients ostomy is intact. No drainage or leaking noted. Patient uses pouch # [id number] and barrier # [id number]. Stoma is budded with good output. Ostomy supplies at bedside. Patient also with stage 2 PI vs
abrasions of buttocks and sacrum. Wound beds are pink with surrounding erythema discoloration. Silicone foam dressing maintained. Patient is able to roll when asked and changes position frequently in bed. Patient on regular diet with BMI of 25.
Heels intact and adhesive foam applied. Heels off-loaded with pillows under calves. RN Obdulia given update. Will follow as needed.
--- NOTE | 2024-03-22 13:41 | W.PN.HOSP.TC ---
Today's Communication/Plan
-
consult renal
cont IVF
consider endocrine consult
cont zosyn
Assessment / Plan
Assessment / Plan
pt is a 78 year old female
weakness/fatigue/sleepiness/n/v--could be infectious as UA positive but urine culture no growth--had been on outpt abx (unknown which one) so culture may not be accurate; could be due to hypercalcemia (ca 15 with high ionized calcium)--cont zosyn
and IVF for now--CT scan without mention of renal stons
Dehydration - decreased po intake with contraction alkalosis--cont IV--diet as tolerated--holding calcium carbonate
Hypothyroid -- TSH 21.7--increase synthroid to 50 mcg from 25
Hypercalcemia - Patient dehydrated and on continued vitamin D and calcium supplementation--s/p calcitonin, cont IVF--ionozed ca high--consult renal--may need endo as well--iPTH pending, vitamin D level low
Hypokalemia - Suspect due to dehydration and on low dose furosemide--mag WNL--replete
Essential HTN - Patient quite hypertensive to 200 systolic on admission--cont losartan, IV hydralazine and on diltiazem too
paroxysmal AFIB - Patient on apixaban 5 bid and diltiazem-- Rate controlled currently--continue eliquis and diltiazem for now--requested records from outside hospital
Colectomy - Despite examination earlier by outside surgeon in their office, CT scan shows multiple findings (Inflammation and foci of soft tissue gas along the midline anterior abdominal wall incision, which may be postoperative or infectious)--cont
IV zosyn--apprec surgery input--nothing to do
DVT PPX - apixaban
Code status - Full Code
Anticipated Discharge: > 48 hours
Subjective/Interval History
-
Date of Service: March 22, 2024
pt answers question but tired
Objective Data
-
Labs:
Laboratory Results
03/22/24
05:53
WBC 15.4 H
Hgb 9.8 L
Hct 31.0 L
Plt Count 522 H
Sodium 141
Potassium 3.2 L
Chloride 97 L
Carbon Dioxide 39 H
BUN 16
Creatinine 1.1 H
Glucose 141 H
Calcium 13.9 H*
Vital Signs:
max temp for 24 hours
03/21/24
19:17
Temp 98.3 F
Laboratory Tests
03/21/24 03/22/24
21:04 05:53
Vitamin D 25-Hydroxy 28.0 L
TSH 21.70 H
PTH Intact Pending
Vital Signs
Temp Pulse Resp BP Pulse Ox
97.7 F 72 14 159/97 97
03/22/24 12:00 03/22/24 12:00 03/22/24 12:00 03/22/24 12:00 03/22/24 12:00
I&O
03/21/24 03/22/24 03/23/24
06:59 06:59 06:59
Intake Total 390 / 390
Balance 390 / 390
Review of Systems
-
Unable to obtain full review of systems at this time due to: Acuity
Physical Exam
-
General: Well Developed, Well Nourished and No Apparent Distress
HEENT: Normocephalic, Atraumatic and Oxygen
Respiratory: Clear to Auscultation; Negative Wheezes or Rhonchi
Cardiac: Regular Rhythm and S1/S2; Negative Murmur
GI: Soft, Nontender, Nondistended and Normal Bowel Sounds
Musculoskeletal: No Clubbing, No Cyanosis and No Edema
Neuro: Negative Awake (sleepy but arousable)
Psych: Calm
[2024-03-22] MEDS: APRESOLINE 5 MG IV (15:04)
--- NOTE | 2024-03-22 15:11 | W.CON.NEPH ---
Consultation
-
Date/Time Consultation Requested: March 22, 2024 2 PM
Date/Time Consultation Performed: March 22, 2024 3 PM
Requesting Provider: Dr. Dalton
Performing Provider: Dr. Berry
Reason for Consultation: Hypercalcemia
Medical History
-
Chief Complaint: Hypercalcemia
History of Present Illness:
This is a 78-year-old female who has recent history of a perforated diverticulitis episode who underwent colostomy after colectomy about a month and a half ago at [facility]. She has no records in [place]. During her hospitalization
there is reports that this was complicated by a pulmonary embolism and she was placed on Eliquis. At that time she was also noted to have hypothyroidism. She was discharged to nursing facility and then subsequently to home. Over the last week she
been having failure to thrive with malaise weakness fatigue nausea vomiting decreased oral intake. Ostomy output was unchanged. She was seen by her primary 2 days ago and diagnosed with a urinary tract infection and given an antibiotic for which
she took 5 doses. This is currently believed to be nitrofurantoin. She then came to the emergency room with mild hypoxia. Given her severe confusion as well as a admission creatinine of 15.6 we are asked to assist with management.
Past Medical History
Diverticulitis, perforated viscus, colectomy, colostomy, hypertension, pulmonary embolism, hypothyroidism, anxiety
Social History
Tobacco: Non-Smoker
Alcohol: None
Family History
Family History: Not Pertinent
Allergies / Home Medications
Allergy/AdvReac Type Severity Reaction Status Date / Time
No Known Allergies Allergy Verified 03/21/24 19:28
�Medication �Instructions �Recorded �Confirmed �Type
Lactobacillus 40-Bifidobact 1 cap PO MEALS probiotic 03/21/24 03/21/24 History
3-S.thermophilus 100 billion cell
capsule (Probiotic)
Saccharomyces boulardii 250 mg 250 mg PO BID probiotic 03/21/24 03/21/24 History
capsule (Florastor)
acetaminophen 325 mg tablet 650 mg PO Q6H PRN mild pain/fever 03/21/24 03/21/24 History
apixaban 5 mg tablet 5 mg PO BID Blood Clot 03/21/24 03/21/24 History
Prevention/Tx
budesonide 0.5 mg/2 mL suspension 0.5 mg inhalation R Q12 03/21/24 03/21/24 History
for nebulization Lung/Breathing Issues
bupropion HCl 150 mg 24 hr tablet, 150 mg PO DAILY mental health 03/21/24 03/21/24 History
extended release
calcium carbonate 500 mg-vitamin 1 tab PO BID Supplement 03/21/24 03/21/24 History
D3 3.125 mcg (125 unit) tablet
cholecalciferol (vitamin D3) 25 25 mcg PO DAILY Supplement 03/21/24 03/21/24 History
mcg (1,000 unit) tablet (Vitamin
D3)
diltiazem HCl 120 mg tablet 120 mg PO HS Blood Pressure 03/21/24 03/21/24 History
docusate sodium 100 mg capsule 100 mg PO BID Constipation 03/21/24 03/21/24 History
furosemide 20 mg tablet 20 mg PO DAILY Fluid 03/21/24 03/21/24 History
Retention/Swelling
levothyroxine 25 mcg tablet 25 mcg PO DAILY Thyroid 03/21/24 03/21/24 History
losartan 25 mg tablet 25 mg PO DAILY Blood Pressure 03/21/24 03/21/24 History
multivitamin 1 tab PO DAILY Supplement 03/21/24 03/21/24 History
nitrofurantoin macrocrystal 100 mg 100 mg PO Q12 urinary tract 03/21/24 03/21/24 History
capsule infection
sennosides 8.6 mg tablet (senna) 17.2 mg PO DAILY Constipation 03/21/24 03/21/24 History
Review of Systems
-
Unable to obtain given the patient's poor mental status and lethargy
Physical Exam
Vital Signs
Vital Signs
Temp Pulse Resp BP Pulse Ox
97.7 F 72 14 159/97 97
03/22/24 12:00 03/22/24 12:00 03/22/24 12:00 03/22/24 12:00 03/22/24 12:00
Lab Results
WBC 15.4 10^3/uL (4.8-10.8) H 03/22/24 05:53
RBC 3.43 10^6/uL (4.20-5.40) L 03/22/24 05:53
Hgb 9.8 g/dL (12.0-16.0) L 03/22/24 05:53
Hct 31.0 % (37.0-47.0) L 03/22/24 05:53
Plt Count 522 10^3/uL (130-400) H 03/22/24 05:53
Sodium 141 mmol/L (135-145) 03/22/24 05:53
Potassium 3.2 mmol/L (3.5-5.1) L 03/22/24 05:53
Chloride 97 mmol/L (98-107) L 03/22/24 05:53
Carbon Dioxide 39 mmol/L (22-30) H 03/22/24 05:53
BUN 16 mg/dl (7-17) 03/22/24 05:53
Creatinine 1.1 mg/dL (0.6-1.0) H 03/22/24 05:53
eGFR 51.11 03/22/24 05:53
Glucose 141 mg/dl (70-99) H 03/22/24 05:53
Calcium 13.9 mg/dl (8.4-10.2) H* 03/22/24 05:53
Albumin 3.7 g/dl (3.5-5.0) 03/21/24 19:35
Physical Exam
Patient is awake alert oriented and in no distress. Mood and affect were pleasant, insight and judgment were good. Pupils are equal round and reactive to light, extraocular movements are intact, sclera were anicteric. Hearing was normal, ears and
nose are intact. Oropharynx was dry. Neck was supple with trachea midline and no thyromegaly. Heart was regular rate and rhythm without rubs. Lower extremities without edema. Lungs were clear to auscultation bilaterally and with normal excursion.
Abdomen was soft, tender, with normal active bowel sounds, and no hepatosplenomegaly. Skin was without rash and with normal turgor.
Data Reviewed
-
Radiology: Image Personally Visualized and interpreted (Chest x-ray on March 21, 2024 by my reading shows left lower lobe opacity)
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
Medical Tests (Nuc Med, Echo etc): Image Personally Visualized and interpreted (EKG on March 21, 2024 by my read shows normal sinus rhythm septal Q waves)
Labs: Labs Reviewed by me (Sodium 141, potassium 3.2, chloride 97, bicarb 39, BUN 16, creatinine 1.1, calcium 13.9, magnesium 1.9, hemoglobin 9.8, WBC 15.4)
Old Records: Requested (From leny Hernandez)
Assessment/Plan
-
Assessment:
Failure to thrive, weakness
Hypercalcemia
Hypertension
Volume depletion
Recent colectomy with colostomy
Pulmonary embolism
Hypokalemia
Plan:
IV fluids with saline will be continued
Calcitonin will be continued up to 4 doses
Midodrine will be given
Follow basic metabolic panel
Complete calcium workup
[facility]
Replace potassium
--- NOTE | 2024-03-22 15:16 | CM ---
Met with pt and her daughter Brooke at bedside
Lives with her daughter in a 2 story home
Baseline performs adl's alone or with min assist, ambulates with cane/walker
Recently hospitalized at [facility], new colostomy
Will have ride at d/c
DME - oxygen(currently not using), rolling walker, shower chair and cane
SNF - denies past history
HH - Current with [facility]
PCP - Dr Aubrey Mcqueen
Pharm - [facility]
PT recs - HH vs rehab
Plan - anticipate home with [facility] VN vs SNF
[2024-03-22] MEDS: AREDIA 260 MG IV (16:34)
[2024-03-22] MEDS: APRESOLINE IV ×2 (20:14→23:49)
[2024-03-22] MEDS: CARDIZEM CD PO ×2 (21:14→21:25)
[2024-03-23] VITALS (14 sets, daily range): BP systolic 128–171; BP diastolic 64–95
[2024-03-23] MEDS: NSS 1000 IV ×3 (00:01→17:31)
[2024-03-23] MEDS: ZOSYN 50 IV ×4 (01:24→20:03)
[2024-03-23] MEDS: APRESOLINE IV ×4 (03:11→16:05)
[2024-03-23] MEDS: CARDIZEM CD 120 MG PO ×2 (03:51→21:04)
[2024-03-23] MEDS: SYNTHROID 25 MCG PO (05:47)
[2024-03-23] MEDS: PULMICORT 0.5 MG INH ×2 (07:54→21:18)
[2024-03-23] MEDS: COZAAR 25 MG PO (09:19)
[2024-03-23] MEDS: COLACE 100 MG PO ×2 (09:19→21:04)
[2024-03-23] MEDS: SENOKOT 17.1999999999999993 MG PO (09:20)
[2024-03-23] MEDS: ELIQUIS 5 MG PO ×2 (09:20→21:05)
[2024-03-23 09:22] LABS: Hematocrit 28.6 % (37.0-47.0); Hemoglobin 8.9 g/dL (12.0-16.0); Mean Corp Hgb Conc. 31.1 g/dL (33.0-37.0); Mean Corpuscular Hgb 28.5 pg (27.0-31.0); Mean Corpuscular Volume 91.7 fL (81.0-99.0); Mean Platelet Volume 10.6 fL (7.4-10.4); Platelet Count 487 10^3/uL (130-400); Red Blood Cell Count 3.12 10^6/uL (4.20-5.40); Red Cell Dist. Width 14.8 % (11.5-14.5); White Blood Cell Count 16.8 10^3/uL (4.8-10.8)
[2024-03-23 09:37] LABS: NT-proBNP 842 pg/ml
[2024-03-23 10:17] LABS: Intact PTH 12.7 pg/ml (13.6-85.8)
[2024-03-23 10:50] LABS: ALT (SGPT) 12 U/L (0-35); AST (SGOT) 25 U/L (14-36); Albumin 2.9 g/dl (3.5-5.0); Alkaline Phosphatase 81 U/L (38-126); Blood Urea Nitrogen 18 mg/dl (7-17); Carbon Dioxide 31 mmol/L (22-30); Chloride 105 mmol/L (98-107); Estimated Creatinine Clearance 29 ml/min; Glucose 103 mg/dl (70-99); Magnesium 1.7 mg/dl (1.6-2.3); Potassium 2.9 mmol/L (3.5-5.1); Sodium 141 mmol/L (135-145); Total Bilirubin 0.4 mg/dl (0.2-1.3); Total Protein 5.6 g/dl (6.3-8.2); eGFR 41.83
--- NOTE | 2024-03-23 11:04 | W.PN.NEPH.PH ---
Today's Communication / Plan
-
K
Assessment/Plan
-
Assessment:
Failure to thrive, weakness
Hypercalcemia
Hypertension
Volume depletion
Recent colectomy with colostomy
Pulmonary embolism
Hypokalemia
Plan:
IV fluids with saline will be continued
Calcitonin will be continued up to 4 doses
Follow basic metabolic panel
Complete calcium workup
[facility]
Replace potassium
pt told me she 'wanted to ' and that she felt this way for a while, but has not spoken to family or 'anyone important'
she was unable to express exactly why she wanted to (pain/QoL/etc)
-
-
Date of Service: March 23, 2024
CC / HPI / ROS
-
Chief Complaint:
hypercalcemia
History of Present Illness:
K low 2.9
GALILEO/Cr up to 1.3
Calcium better at 11 with calcitonin/pamidronate
BP stable
Review of Systems:
no CP/SOB
Labs
-
Labs:
WBC 16.8 10^3/uL (4.8-10.8) H 03/23/24 09:03
RBC 3.12 10^6/uL (4.20-5.40) L 03/23/24 09:03
Hgb 8.9 g/dL (12.0-16.0) L 03/23/24 09:03
Hct 28.6 % (37.0-47.0) L 03/23/24 09:03
Plt Count 487 10^3/uL (130-400) H 03/23/24 09:03
Sodium 141 mmol/L (135-145) 03/23/24 09:04
Potassium 2.9 mmol/L (3.5-5.1) L 03/23/24 09:04
Chloride 105 mmol/L (98-107) 03/23/24 09:04
Carbon Dioxide 31 mmol/L (22-30) H 03/23/24 09:04
BUN 18 mg/dl (7-17) H 03/23/24 09:04
Creatinine 1.3 mg/dL (0.6-1.0) H 03/23/24 09:04
eGFR 41.83 03/23/24 09:04
Glucose 103 mg/dl (70-99) H 03/23/24 09:04
Calcium 11.0 mg/dl (8.4-10.2) H D 03/23/24 09:04
Phosphorus Cancelled 03/22/24 21:00
Sxf-Q-Jpvaaljwuta Pept 842 pg/ml 03/23/24 09:04
Albumin 2.9 g/dl (3.5-5.0) L 03/23/24 09:04
Physical Exam
-
Vital Signs:
Vital Signs
Temp Pulse Resp BP Pulse Ox
98.2 F 70 16 143/90 94
03/23/24 07:00 03/23/24 07:58 03/23/24 07:58 03/23/24 07:00 03/23/24 07:58
Cardiovascular:: Regular rate and rhythm
Respiratory:: Bilateral: Coarse
Lung Excursion:: Normal
Abdomen:: Nontender and Soft
Bowel Sounds:: Normal
Extremity Edema:: None: Bilateral:
--- NOTE | 2024-03-23 11:35 | W.PN.HOSP.TC ---
Today's Communication/Plan
-
consider stopping ABX
await iPTH level
cont zosyn for now
Assessment / Plan
Assessment / Plan
pt is a 78 year old female
weakness/fatigue/sleepiness/n/v--could be infectious as UA positive but urine culture no growth--had been on outpt abx (unknown which one) so culture may not be accurate; could be due to hypercalcemia (ca 15 with high ionized calcium)--cont zosyn
and IVF for now--CT scan without mention of renal stones
Dehydration - decreased po intake with contraction alkalosis--cont IV--diet as tolerated--holding calcium carbonate
Hypothyroid -- TSH 21.7--increase synthroid to 50 mcg from 25
Hypercalcemia - Patient dehydrated and on continued vitamin D and calcium supplementation--s/p calcitonin, cont IVF--ionized ca high--apprec renal--may need endo as well--iPTH pending, vitamin D level low
Hypokalemia - Suspect due to dehydration and on low dose furosemide--mag WNL--replete
Essential HTN - Patient quite hypertensive to 200 systolic on admission--cont losartan, IV hydralazine and on diltiazem too
paroxysmal AFIB - Patient on apixaban 5 bid and diltiazem-- Rate controlled currently--continue eliquis and diltiazem for now--requested records from outside hospital
Colectomy - Despite examination earlier by outside surgeon in their office, CT scan shows multiple findings (Inflammation and foci of soft tissue gas along the midline anterior abdominal wall incision, which may be postoperative or infectious)--cont
IV zosyn--apprec surgery input--nothing to do
DVT PPX - apixaban
Code status - Full Code
Anticipated Discharge: > 48 hours
Subjective/Interval History
-
Date of Service: March 23, 2024
pt chose not to interact with me--told renal doctor she wanted to
Objective Data
-
Labs:
Laboratory Results
03/23/24 03/23/24
09:03 09:04
WBC 16.8 H
Hgb 8.9 L
Hct 28.6 L
Plt Count 487 H
Sodium 141
Potassium 2.9 L
Chloride 105
Carbon Dioxide 31 H
BUN 18 H
Creatinine 1.3 H
Glucose 103 H
Calcium 11.0 H D
Total Bilirubin 0.4
AST 25
ALT 12
Alkaline Phosphatase 81
Vital Signs:
max temp for 24 hours
03/23/24
03:10
Temp 98.5 F
Vital Signs
Temp Pulse Resp BP Pulse Ox
97.8 F 69 16 143/73 95
03/23/24 11:00 03/23/24 11:00 03/23/24 11:00 03/23/24 11:00 03/23/24 11:00
I&O
03/22/24 03/23/24 03/24/24
06:59 06:59 06:59
Intake Total 390 / 390 120 / 120
Balance 390 / 390 120 / 120
Review of Systems
-
Unable to obtain full review of systems at this time due to: Other (chose not to interact)
Physical Exam
-
General: Well Developed, Well Nourished and No Apparent Distress
HEENT: Normocephalic and Atraumatic
Respiratory: Clear to Auscultation; Negative Wheezes or Rhonchi
Cardiac: Regular Rhythm and S1/S2; Negative Murmur
GI: Soft, Nontender, Nondistended and Normal Bowel Sounds
Musculoskeletal: No Clubbing, No Cyanosis and No Edema
Neuro: Awake
[2024-03-23] MEDS: CALCIMAR/CALCITONIN 400 UNITS/ 2 ML 100 UNITS IM (11:49)
[2024-03-23] MEDS: CALCIMAR/CALCITONIN 400 UNITS/ 2 ML IM (11:51)
[2024-03-23] MEDS: KCL 40 MEQ PO (11:52)
[2024-03-23] MEDS: KCL 270 MEQ IV (11:52)
[2024-03-23 13:14] LABS: Glucose - Point of Care 128 mg/dl (70-99)
[2024-03-23] MEDS: APRESOLINE 5 MG IV ×3 (13:25→23:07)
--- NOTE | 2024-03-23 13:35 | W.PN.UPDATE ---
Addendum entered and electronically signed by Litzy Dalton MD 03/23/24 13:58:
head CT no acute findings
arm raised above her head and pt won't let it fall on her......
will ask neuro to see for opinion
Original Note:
Update Note
Progress Note Update
called to see patient for rapid response--not responding or opening eyes to name/voice--does grimace with painful stimuli
temp 97.1 rectal HR 70, BP 174/90, RR 16-20, 97% 2L blood glucose 125
GENERAL: well developed, well nourished, female not responding
HEENT: NC/AT--2L O2 NC
HEART: regular rate and rhythm, +S1, +S2
LUNGS : clear to auscultation bilaterally
ABDOM: soft, nontender, nondistended, + bowel sounds + ostomy
EXT: no cyanosis, clubbing, or edema
NEUROLOGIC: not responding to voice
EKG SR [address] pending
cbc, bmp, troponin, lactic, mag STAT pending
transfer to ICU
consult calcine furnace tender
cont all meds as able
--- NOTE | 2024-03-23 13:53 | PTCARENOTE ---
At 1310 family came out of room and stated pt was not responding to family.family came out and asked for help. Pt appeared sleeping soundly with flushed face, very warm, not responding to tuff sternal rub or verbal stimulation. PT flaccid when arm
left up. BS 125. EKG no changes, Vitals 97.6 rectal, HR 70 NSR, RR 16-18, BP 174/90. After two minutes pt not responsive. we called rapid response. Dr Helms notified and up with in three minutes. MD oked to hold IV KCL running , BP rechecked
181/70 and MD made aware. PT did not receive any of her IV hydralazine today. MD asked to give it. Hydralazine given per MD order. CT scan stat ordered and taken to CT Scan by two ICU nurses. Todays. WBC 16.8, BP pending, urnine cx negative, PT
remained non responsive throughout and transered to ICU per MD order. Family outside of room. tearful emotional support given by RN. Plumber Gasfitter ambulated family to ICU.
[2024-03-23] MEDS: NSS IV (14:00)
[2024-03-23 14:01] LABS: Hematocrit 27.1 % (37.0-47.0); Hemoglobin 8.7 g/dL (12.0-16.0); Mean Corp Hgb Conc. 32.1 g/dL (33.0-37.0); Mean Corpuscular Hgb 28.4 pg (27.0-31.0); Mean Corpuscular Volume 88.6 fL (81.0-99.0); Mean Platelet Volume 10.4 fL (7.4-10.4); Platelet Count 509 10^3/uL (130-400); Red Blood Cell Count 3.06 10^6/uL (4.20-5.40); Red Cell Dist. Width 14.8 % (11.5-14.5); White Blood Cell Count 16.2 10^3/uL (4.8-10.8)
[2024-03-23 14:02] LABS: Lactic Acid 0.7 mmol/L (0.7-2.0)
[2024-03-23 14:03] LABS: ALT (SGPT) 13 U/L (0-35); AST (SGOT) 24 U/L (14-36); Albumin 2.8 g/dl (3.5-5.0); Alkaline Phosphatase 83 U/L (38-126); Blood Urea Nitrogen 18 mg/dl (7-17); Calcium 10.6 mg/dl (8.4-10.2); Carbon Dioxide 33 mmol/L (22-30); Chloride 107 mmol/L (98-107); Estimated Creatinine Clearance 27 ml/min; Glucose 93 mg/dl (70-99); Magnesium 1.7 mg/dl (1.6-2.3); Potassium 3.2 mmol/L (3.5-5.1); Sodium 139 mmol/L (135-145); Total Bilirubin 0.3 mg/dl (0.2-1.3); Total Protein 5.6 g/dl (6.3-8.2); eGFR 38.27
[2024-03-23 14:14] LABS: Troponin I < 0.012 ng/ml
--- NOTE | 2024-03-23 14:19 | CON.NEURO4 ---
Consultation - Neurology 4
-
CONSULTING PHYSICIAN: Andrew Chowdhury
REFERRING PHYSICIAN: Hospitalist
DICTATED BY: Andrew Chowdhury
DATE/TIME OF REQUEST: 03/23/24
DATE/TIME OF CONSULTATION: 03/23/24
Reason for Consultation: Encephalopathy
History of Present Illness:
Patient is a 78 year old woman with history of hypertension, diverticulitis s/p colectomy and colostomy presenting to hospital with symptoms of nausea and vomiting, chills and generalized weakness and was admitted on 03/21. She was found to have
severely high calcium to level of 15.2 on admission, improving to 10.6 today with treatment. Additionally had high TSH of 21.7 and had signs of urinary tract infection on UA and was started on Zosyn. Rapid response called this afternoon due to
patient not speaking and poorly responsive, did have some evidence of awareness as hand held above her head dropped she would not let it hit her face. CT head non-contrast showed no acute abnormalities. No overt convulsive seizure activity seen
here in the hospital, no history of previous seizures or stroke. Currently patient shakes her head when asked if she will talk with me, obeys simple commands consistently. Had told nephrology some thoughts of wanting to but didn't give further
details.
Past Medical History: Hypertension, diverticulitis with perforation s/p colectomy and colostomy
Surgical History: Colectomy and colostomy after diverticulitis with perforation
Family History: Reviewed and non-contributory
Social History: Retired, lives with family at home, no tobacco or significant alcohol
Allergies: No known drug allergies
Review of Symptoms:
Patient non-verbal unable to obtain
Physical Exam:
Elderly woman, no distress, eyes clear, oropharynx clear, abdomen soft non tender, ostomy in place, no lower extremity edema
Neurologic Examination:
Mental status shows a patient who has eyes closed but consistently obeys commands sticking out tongue, showing 2 thumbs up, wiggling feet, shakes her head when asked if she will speak
CN: Resting gaze midline, horizontal eye movements normal on VOR, no gaze preference, no ptosis, pupils 3 mm equal round and reactive to light bilaterally, face symmetric, tongue midline
Motor: Normal bulk and tone, mild tremor of the trunk and arms present at rest, no rigidity or parkinsonism
Sensory: Intact to light touch and stimulation
Reflexes: 1+ bicep triceps patella and achilles, no clonus, babinski negative
Coordination: Unable to assess
Gait: Unable to assess
Neuro Imaging: CT head non contrast no acute findings, no acute or chronic infarcts, no hemorrhage, no masses or edema, generalized age appropriate atrophy
Impressions
1. Probably mostly stressors and depression contributing to her behavior given she is awake, obeying commands but refusing to speak. Some potential toxic metabolic encephalopathy from mild GALILEO, UTI, metabolic derangements. No obvious seizure
activity seen here though at risk for this with hypercalcemia. Obeying commands makes non-convulsive seizure activity very unlikely.
2. CT head non contrast with no large structural lesions.
3. Hypercalcemia, improving
4. Hypothyroidism
5. History of depression had been on Buproprion
Recommendations:
1. Will check short EEG
2. No indication for seizure medications
3. Not recommending further brain imaging
4. Continue to follow calcium, renal function, electrolytes
5. Acceptable to resume Buproprion, may be prudent to wait until calcium normalizes given risks of seizure from hypercalcemia and Buproprion lowers seizure threshold although only a small amount at a 150 mg dose
Discussed patient care with: Patient, nursing, hospitalist
--- NOTE | 2024-03-23 14:25 | CON.INTV ---
Consultation
Consultation Request
Date/Time Consultation Requested: 03/23/2024 - 135
Date/Time Consultation Performed: 03/23/2024 - 140
Requesting Provider: Dr. Dalton
Performing Provider: Dr. Dawson
Reason for Consultation: Unresponsiveness
Medical History
-
Chief Complaint: Weakness + nausea/vomiting
History of Present Illness:
78-year-old female with recent bowel rupture s/p resection with colostomy approximately 1 month ago at [facility], with a past medical history of hypertension, hearing impairment, depression, ambulatory dysfunction and former tobacco use
disorder who presents with weakness, nausea and vomiting X 1 day. Patient was being treated for UTI prior to arrival and she has been 'out of it' for about 1 week. In the ER she was afebrile to 98.3 �F, pulse rate: 92, RR: 20, BP 194/88 and
saturating 97% on room air. Initial labs showed leukocytosis to 17.7, with anemia down to 10.3, with severe hypokalemia down to 2.7, serum chloride of 85, serum creatinine 1.2, lactate of 2.7, calcium of 15.6 with an ionized calcium of 1.97. PTH
was low at 12.7, and vitamin D level also was insufficient at 28ng/mL. TSH was found to be severely high at 21.7, and urinalysis was positive for evidence of UTI. Blood and urine cultures were collected, CXR showed no acute pathology, with CT
abdomen/pelvis showing a focal opacity in the posterior LLL suspicious for atelectasis versus pneumonia, with segments of infectious/inflammatory enteritis of the distal small bowel and mild ill-defined inflammatory fat stranding throughout the
mesenteric fat of the abdomen. In the ER, IVF with NS 0.9% x1L was given in addition to ABx with Zosyn, and pt was admitted to hospitalist service on telemetry. IVF. Abx and levothyroxine were continued. Unfortunately patient became less
responsive and is now being transferred to ICU for close monitoring. Neurology also consulted, and critical care services now consulted for additional management/recommendations.
When I saw the patient she was in bed, responding to me appropriately, saying that she 'could not speak earlier,' and she is not exactly sure what was happening. She for like she was being tortured earlier. She is able to tell me why she is in the
hospital although it does take her some time to come up with her replies. She currently denies headache, chest pain, abdominal pain, shortness of breath, fevers or chills.
PMHx: Hypertension, former tobacco smoker, history of perforated bowel s/p bowel resection + colostomy, hearing impairment, depression, ambulatory dysfunction
PSHx: Bowel resection
Past Medical History
Past Medical History: Other (Above as per HPI)
Past Surgical History: Other (Above as per HPI)
Social History
Tobacco: Former Smoker
Alcohol: None
Drug: None
Living: With Family
Employment: Retired
Family History
Family History: Reviewed & Not Pertinent
Allergies / Home Medications
Allergies
Allergy/AdvReac Type Severity Reaction Status Date / Time
No Known Allergies Allergy Verified 03/21/24 19:28
Home Medications
�Medication �Instructions �Recorded �Confirmed �Last Taken �Type
Lactobacillus 40-Bifidobact 1 cap PO MEALS probiotic 03/21/24 03/21/24 Unknown History
3-S.thermophilus 100 billion cell
capsule (Probiotic)
Saccharomyces boulardii 250 mg 250 mg PO BID probiotic 03/21/24 03/21/24 Unknown History
capsule (Florastor)
acetaminophen 325 mg tablet 650 mg PO Q6H PRN mild pain/fever 03/21/24 03/21/24 Unknown History
apixaban 5 mg tablet 5 mg PO BID Blood Clot 03/21/24 03/21/24 Unknown History
Prevention/Tx
budesonide 0.5 mg/2 mL suspension 0.5 mg inhalation R Q12 03/21/24 03/21/24 Unknown History
for nebulization Lung/Breathing Issues
bupropion HCl 150 mg 24 hr tablet, 150 mg PO DAILY mental health 03/21/24 03/21/24 Unknown History
extended release
calcium carbonate 500 mg-vitamin 1 tab PO BID Supplement 03/21/24 03/21/24 Unknown History
D3 3.125 mcg (125 unit) tablet
cholecalciferol (vitamin D3) 25 25 mcg PO DAILY Supplement 03/21/24 03/21/24 Unknown History
mcg (1,000 unit) tablet (Vitamin
D3)
diltiazem HCl 120 mg tablet 120 mg PO HS Blood Pressure 03/21/24 03/21/24 Unknown History
docusate sodium 100 mg capsule 100 mg PO BID Constipation 03/21/24 03/21/24 Unknown History
furosemide 20 mg tablet 20 mg PO DAILY Fluid 03/21/24 03/21/24 Unknown History
Retention/Swelling
levothyroxine 25 mcg tablet 25 mcg PO DAILY Thyroid 03/21/24 03/21/24 Unknown History
losartan 25 mg tablet 25 mg PO DAILY Blood Pressure 03/21/24 03/21/24 Unknown History
multivitamin 1 tab PO DAILY Supplement 03/21/24 03/21/24 Unknown History
nitrofurantoin macrocrystal 100 mg 100 mg PO Q12 urinary tract 03/21/24 03/21/24 Unknown History
capsule infection
sennosides 8.6 mg tablet (senna) 17.2 mg PO DAILY Constipation 03/21/24 03/21/24 Unknown History
Review of Systems
-
History Source: Patient
All other systems: Negative unless noted
Vitals / Labs / Diagnostic Testing
Vital Signs
Temp Pulse Resp BP Pulse Ox
97.8 F 69 16 143/73 95
03/23/24 11:00 03/23/24 11:00 03/23/24 11:00 03/23/24 11:00 03/23/24 11:00
Lab Data
03/23/24 13:33
03/23/24 13:33
Microbiology
03/22/24 06:11 Nose MRSA Screen - Final
No Methicillin Resistant Staphylococcus aureus isolated.
03/21/24 21:04 Blood/Venous Blood Culture - Preliminary
No Growth in 24 hours- Final report to follow
03/21/24 19:35 Blood/Venous Blood Culture - Preliminary
No Growth in 24 hours- Final report to follow
03/21/24 19:47 Urine Urine Culture - Final
No Significant Growth
Diagnostic Testing:
Physical Exam
-
HEENT: Normocephalic and Anicteric
Cardiovascular: S1/S2 and Peripheral Edema (negative)
Respiratory: Wheeze (negative), Rales (negative), Rhonchi (negative) and Non-Labored Respirations
GI: Soft, Non Distended and Non Tender
Neurology: Awake and Alert
Skin: Warm and Dry
General: Respiratory Distress (negative), Comfortable, Fever (negative) and Chills (negative)
Assessment
-
Assessment: 78-year-old female with recent bowel rupture s/p resection with colostomy approximately 1 month ago at [facility], with a past medical history of hypertension, hearing impairment, depression, ambulatory dysfunction and former
tobacco use disorder who presents with weakness, nausea and vomiting X 1 day. Patient was being treated for UTI prior to arrival and she has been 'out of it' for about 1 week. In the ER she was afebrile to 98.3 �F, pulse rate: 92, RR: 20, BP
194/88 and saturating 97% on room air. Initial labs showed leukocytosis to 17.7, with anemia down to 10.3, with severe hypokalemia down to 2.7, serum chloride of 85, serum creatinine 1.2, lactate of 2.7, calcium of 15.6 with an ionized calcium of
1.97. PTH was low at 12.7, and vitamin D level also was insufficient at 28ng/mL. TSH was found to be severely high at 21.7, and urinalysis was positive for evidence of UTI. Blood and urine cultures were collected, CXR showed no acute pathology,
with CT abdomen/pelvis showing a focal opacity in the posterior LLL suspicious for atelectasis versus pneumonia, with segments of infectious/inflammatory enteritis of the distal small bowel and mild ill-defined inflammatory fat stranding throughout
the mesenteric fat of the abdomen. In the ER, IVF with NS 0.9% x1L was given in addition to ABx with Zosyn, and pt was admitted to hospitalist service on telemetry. IVF. Abx and levothyroxine were continued. Unfortunately patient became less
responsive and is now being transferred to ICU for close monitoring. Neurology also consulted, and critical care services now consulted for additional management/recommendations.
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
Impression:
#Episode of unresponsiveness/motor dysfunction - unclear etiology - no CVA seen on CT head; DDx is seizure vs TME
#Acute encephalopathy due to toxic�metabolic encephalopathy in the setting of of sepsis (sources include UTI, pneumonia and enteritis) and hypothyroidism and hypercalcemia
#Distal small bowel enteritis
#LLL opacity suspicious for rounded atelectasis vs pneumonia
#Abnormal urinalysis suspicious for UTI
#Hypercalcemia
#Elevated TSH concerning for primary hypothyroidism (free T4 is pending)
#Anemia
#Hypokalemia
#Acute kidney injury
#Metabolic alkalosis
#Hypoalbuminemia
Plan:
- Aspiration precautions - keep HOB elevated >30-45 degrees
- NPO - if safe to take PO meds as per nursing, then continue PO meds
- Neuro consulted - recs appreciated; Check EEG, and if pt spikes fever or if AMS fails to improve despite improvement in Ca++ and TFts, then obtain LP and consider MRI brain
- Continue Abx with Zosyn
- Check blood gas given elevated serum HCO3
- Continue levothyroxine and check free T4
- Continue IVF while we trend calcium level, check ionized calcium level and follow up PTHrp
- Maintain SpO2 >90-94%
- Maintain MAP>65
- Replete electrolytes with K>4, Mg>2
- Maintain euglycemia with goal BG 140-180
- prn nebulized bronchodilators
- DVT ppx: Eliquis
Critical care statement: A total of 40 minutes of critical care time was provided for this patient today. This includes management of unstable vital signs, evaluation of the patient at bedside, reviewing the patient's pertinent medical records
including radiographs, microbiology, laboratory evaluations, and discussion with primary team, consultants, pharmacy, nutrition, physical therapy, case management, charge nurse, critical care nursing, and respiratory therapy.
Data:
CT Head 03-23-2024:
No acute intracranial abnormality noted.
Moderate atrophy.
Mild nonacute sinusitis
CT Abd/Pelvis with IV contrast 03-21-2024:
1. Inflammation and foci of soft tissue gas along the midline anterior abdominal wall incision, which may be postoperative or infectious.
2. Segments of infectious or inflammatory enteritis of the distal small bowel.
3. Left hemicolectomy and left upper quadrant colostomy.
4. Mild ill-defined inflammatory fat stranding throughout the mesenteric fat of the abdomen.
5. Small airspace opacity in the left lower lobe for which differential considerations would include mild pneumonitis/pneumonia, a pulmonary infarction, or other inflammatory process.
CXR 03-21-2024:
The small airspace opacity in the posterior basilar left lower lobe is better seen on the CT abdomen/pelvis from the same day.
No pleural effusion or pneumothorax. The cardiomediastinal silhouette is normal. Chronic mild degenerative changes of the spine.
--- NOTE | 2024-03-23 14:30 | PTCARENOTE ---
Addendum entered by Serene Wheeler RN 03/23/24 16:01:
LLQ colostomy noted...stoma pink and budded. Appliance intact. 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
Original Note:
Assumed care of patient. Pt rec'd nonverbal...systemic tremor noted. Does assist w/ repositioning....muscle reflexes tested in upper extremities, pt able to guard from threat of own arm. S1 S2 reg w/ NSR on monitor. Weak PP. Trace generalized
edema noted. Heels elevated on pillows. On 2L
N/C...sats 97%. Lungs diminished...poor effort. Abdomen round..+BS. PW applied...incontinent for yellow urine. Attends on. Skin pale in color....optifoam on sacrum...face flushed. 22P RFA inserted....20P RW occluded and removed. LFA INT w/
IVF's and KCL rider infusing. VS documented. Will continue to monitor closely.
--- NOTE | 2024-03-23 14:39 | EEG.RPT ---
Electroencephalogram Report
Recording
Date of EE03/23/24
Type of EEG: Routine
Length of EEG recordin minutes
Done with Video Recording: Yes
Patient Status: Inpatient
Recording Conditions: Awake and Drowsy
Hyperventilation Performed: No
Photic Stimulation Performed: Yes
Report
Less THAN 1 HOUR EEG INTERPRETATION:
Unremarkable EEG for age
CLINICAL CORRELATION:
This was a normal EEG study. A normal EEG does not rule out a diagnosis of epilepsy.
Clinical correlation is advised.
METHODS:
A 21 channel digitized electroencephalogram (EEG) was performed using the 10/20 international system of electrode placement and one-lead of ECG recorded. Duration
ELECTROENCEPHALOGRAPHER IMPRESSION(S):
Quality of study
Good
Background
Mixed medium amplitude mix of alpha and theta frequencies
Normal posterior dominant rhythm of 10 hz attenuates with eye opening
There were no significant asymmetries of background activity noted.
Sleep
Drowsiness present
Stage 1 present
Photic Stimulation
No activation
ECG
Normal sinus rhythm
--- NOTE | 2024-03-23 15:00 | PTCARENOTE ---
Seen by , , and ...orders rec'd. CT head done at rapid...negative per neuro. EEG at bedside. Pt's dtr and son in law fully updated. Urine sent per nephro. Will continue to monitor.
[2024-03-23 15:15] LABS: Free T4 0.82 ng/dl (0.78-2.19)
[2024-03-23 15:21] LABS: INR 1.88; PT 21.4 Sec (11.4-14.6)
[2024-03-23 15:29] LABS: Urine Sodium 83 mmol/L (30-90)
--- NOTE | 2024-03-23 16:25 | PTCARENOTE ---
Pt increasingly alert and conversive. Able to let needs be known. Occasionally confused to place. Asked for water. Able to take 4oz w/ straw w/o issue. MD updated. Diet advanced back to regular.
[2024-03-23 16:35] LABS: Venous Blood Gas HCO3 33.3 mmol/L (22-27); Venous Blood Gas O2 Sat % 99.5 %; Venous Blood Gas pCO2 39 mmHg (35-48); Venous Blood Gas pH 7.54 (7.32-7.43); Venous Blood Gas pO2 207 mmHg (30-50)
[2024-03-23 20:22] LABS: Glucose - Point of Care 99 mg/dl (70-99)
--- NOTE | 2024-03-23 21:18 | PTCARENOTE ---
Assumed care of pt at 1900. Pt is withdrawn with flat affect. Resting in bed with eyes closed and needs a lot of coaxing and encouragement to interact with staff. Pt opens her eyes when asked to do so, was able to state her full name and birthday.
When asked where she was or what the date was, pt would not respond. Pt would also not respond and acted as if she was asleep when asked take pills but when I told her what the pills were and that there were only 3 and then I would leave her alone,
she took them one at a time with sips of water without any issues. Pt able to follow commands. Allowed me to assess her pupils and hand grasps but did not cooperate for BLE muscle strength assessment (although did wiggle her toes when asked). Pt
diaphoretic at start of shift, blood glucose checked at was 99. Full soap and water bath done and linens changed. SR 60s-70s on monitor, SpO2 97% on 2LNC. Physical assessment completed, see nursing shift assessment flowsheet for full details.
[2024-03-24] VITALS (19 sets, daily range): BP systolic 113–156; BP diastolic 61–77; O2SAT 96; BMI 26.3
--- NOTE | 2024-03-24 00:03 | PTCARENOTE ---
Assessment unchanged. Pt has been resting with eyes closed, snoring at times. Continues to be withdrawn and minimally verbal but still follows commands and will open her eyes. SR 60s on monitor, SpO2 97-98% on 2LNC.
[2024-03-24] MEDS: NSS 1000 IV (01:52)
[2024-03-24] MEDS: ZOSYN 50 IV ×2 (01:54→08:24)
[2024-03-24] MEDS: APRESOLINE IV ×4 (03:25→23:23)
[2024-03-24 04:50] LABS: Hematocrit 26.8 % (37.0-47.0); Hemoglobin 8.3 g/dL (12.0-16.0); Mean Corpuscular Hgb 28.5 pg (27.0-31.0); Mean Corpuscular Volume 92.1 fL (81.0-99.0); Mean Platelet Volume 10.5 fL (7.4-10.4); Platelet Count 452 10^3/uL (130-400); Red Blood Cell Count 2.91 10^6/uL (4.20-5.40); Red Cell Dist. Width 14.8 % (11.5-14.5); White Blood Cell Count 13.4 10^3/uL (4.8-10.8)
[2024-03-24 05:15] LABS: Blood Urea Nitrogen 18 mg/dl (7-17); Calcium 9.8 mg/dl (8.4-10.2); Carbon Dioxide 29 mmol/L (22-30); Chloride 110 mmol/L (98-107); Estimated Creatinine Clearance 31 ml/min; Glucose 89 mg/dl (70-99); Magnesium 1.7 mg/dl (1.6-2.3); Potassium 2.9 mmol/L (3.5-5.1); Sodium 142 mmol/L (135-145); eGFR 46.05
[2024-03-24] MEDS: MAGNESIUM SULFATE 100 IV (05:29)
[2024-03-24] MEDS: KCL 270 MEQ IV ×2 (05:33→10:02)
--- NOTE | 2024-03-24 05:44 | PTCARENOTE ---
Assessment unchanged. Mag and K+ repletion ordered and administered based off AM lab results. Pt has slept most of the shift. Around 0245 was awake when temp being taken, was asking for help repositioning, marcus care done and pad changed at that
time, pt more verbal at that time using more than just monosyllables. SR 60s on monitor. Pt had pulled off her O2 at one point during the night, within a few minutes her SpO2 dropped to 87%. Placed back on 2LNC and is now 97%.
[2024-03-24] MEDS: APRESOLINE 5 MG IV ×2 (06:02→20:23)
[2024-03-24] MEDS: SYNTHROID 25 MCG PO ×2 (06:02→09:08)
[2024-03-24] MEDS: PULMICORT 0.5 MG INH ×2 (07:43→20:04)
[2024-03-24] MEDS: DUONEB 3 ML INH (07:43)
--- NOTE | 2024-03-24 07:45 | PTCARENOTE ---
Assumed care of patient. Pt rec'd sleeping but arousable to verbal stimuli. Knows name, , and place. Took po meds w/o issue. Breakfast ordered. STAFFORD's but occasionally will not follow commands. Appears comfortable...denies pain. S1 S2 reg
w/ NSR on monitor. +PP. Trace generalized edema. R/A attempted...sats 89%. Encouraged coughing, deep breathing and use of IS. Placed on 2L N/C..sats 95%. Lungs diminished in bases L>R w/ fine crackles in right base. Abdomen round...+BS. LLQ
colostomy w/ small amt of formed brown stool. Stoma pink and budded. Intact optifoam on sacral area....seen by wound care this admission. 22P RFA capped. 22P LFA w/ IVF's infusing. VS documented. Discussed plan of care w/ .
updated dtr on telephone. Psych consulted...meds reordered...tx to tele when bed available.
--- NOTE | 2024-03-24 08:12 | W.PN.HOSP.TC ---
Today's Communication/Plan
-
transfer back to tele
psych consult
dietary consult
Assessment / Plan
Assessment / Plan
pt is a 78 year old female
unresponsiveness--led to rapid response--work up negative--apprec neuro--seems behavioral (? depression)--consult psych--restarted bupropion but may need different drug
weakness/fatigue/sleepiness/n/v--could be infectious as UA positive but urine culture no growth--had been on outpt abx (unknown which one) so culture may not be accurate; could be due to hypercalcemia (ca 15 with high ionized calcium)--stop zosyn
and IVF for now--CT scan without mention of renal stones
Dehydration - decreased po intake with contraction alkalosis--stop IV--diet as tolerated--holding calcium carbonate --dietary consult
Hypothyroid -- TSH 21.7--increase synthroid to 50 mcg from 25
Hypercalcemia - Patient dehydrated and on continued vitamin D and calcium supplementation---ionized ca high--apprec renal--iPTH normal, PTH related peptide pending vitamin D level low--calcium now WNL--s/p calcitonin and pamidronate
Hypokalemia - Suspect due to dehydration and on low dose furosemide--mag WNL--replete
Essential HTN - Patient quite hypertensive to 200 systolic on admission--cont losartan, IV hydralazine and on diltiazem too
paroxysmal AFIB - Patient on apixaban 5 bid and diltiazem-- Rate controlled currently--continue eliquis and diltiazem for now--requested records from outside hospital
Colectomy - Despite examination earlier by outside surgeon in their office, CT scan shows multiple findings (Inflammation and foci of soft tissue gas along the midline anterior abdominal wall incision, which may be postoperative or infectious)--stop
IV zosyn--apprec surgery input--nothing to do
DVT PPX - apixaban
Code status - Full Code
Anticipated Discharge: 24 - 48 hours
Subjective/Interval History
-
Date of Service: March 24, 2024
pt now awake but still chooses how much she will interact
Objective Data
-
Labs:
Laboratory Results
03/24/24
04:41
WBC 13.4 H
Hgb 8.3 L
Hct 26.8 L
Plt Count 452 H
Sodium 142
Potassium 2.9 L
Chloride 110 H
Carbon Dioxide 29
BUN 18 H
Creatinine 1.2 H
Glucose 89
Calcium 9.8
Vital Signs:
max temp for 24 hours
03/23/24
19:12
Temp 99.2 F
Vital Signs
Temp Pulse Resp BP Pulse Ox
98 F 68 18 152/61 98
03/24/24 07:45 03/24/24 07:45 03/24/24 07:45 03/24/24 06:02 03/24/24 07:45
I&O
03/23/24 03/24/24 03/25/24
06:59 06:59 06:59
Intake Total 120 / 120 3295.0 / 3295.0
Output Total 1130 / 1130
Balance 120 / 120 2165.0 / 2165.0
Review of Systems
-
Unable to obtain full review of systems at this time due to: Other (pt chooses how much she wants to talk)
Physical Exam
-
General: Well Developed, Well Nourished and No Apparent Distress
HEENT: Normocephalic and Atraumatic
Respiratory: Clear to Auscultation; Negative Wheezes or Rhonchi
Cardiac: Regular Rhythm and S1/S2; Negative Murmur
GI: Soft, Nontender, Nondistended, Normal Bowel Sounds and Ostomy
Musculoskeletal: No Clubbing, No Cyanosis and No Edema
Neuro: Awake
Psych: Depressed
[2024-03-24] MEDS: ELIQUIS 5 MG PO ×2 (08:25→20:24)
[2024-03-24] MEDS: COLACE 100 MG PO ×2 (08:25→20:24)
[2024-03-24] MEDS: COZAAR 25 MG PO (08:25)
[2024-03-24] MEDS: THERAGRAN 1 TABLET PO (08:28)
[2024-03-24] MEDS: VITAMIN D3 (cholecalciferol) 25 MCG PO (08:28)
[2024-03-24] MEDS: FLORASTOR 250 MG PO ×2 (08:29→20:24)
[2024-03-24] MEDS: WELLBUTRIN XL (24 hour extended release) 150 MG PO (08:29)
[2024-03-24] MEDS: SENOKOT 17.1999999999999993 MG PO (08:29)
--- NOTE | 2024-03-24 09:27 | W.PN.NEPH.PH ---
Today's Communication / Plan
-
cap IVF
Assessment/Plan
-
Assessment:
Failure to thrive, weakness
Hypercalcemia
Hypertension
Volume depletion
Recent colectomy with colostomy
Pulmonary embolism
Hypokalemia
Plan:
IV fluids with saline will be capped
Calcitonin completed
Follow basic metabolic panel
Complete calcium workup, await PTHrP
Obtain records from [facility]
Replace potassium
-
-
Date of Service: March 24, 2024
CC / HPI / ROS
-
Chief Complaint:
hypercalcemia
History of Present Illness:
K low 2.9 still
GALILEO/Cr down to 1.2
Calcium better at 9.8 with calcitonin/pamidronate
BP stable
Review of Systems:
no CP/SOB
Labs
-
Labs:
WBC 13.4 10^3/uL (4.8-10.8) H 03/24/24 04:41
RBC 2.91 10^6/uL (4.20-5.40) L 03/24/24 04:41
Hgb 8.3 g/dL (12.0-16.0) L 03/24/24 04:41
Hct 26.8 % (37.0-47.0) L 03/24/24 04:41
Plt Count 452 10^3/uL (130-400) H 03/24/24 04:41
Sodium 142 mmol/L (135-145) 03/24/24 04:41
Potassium 2.9 mmol/L (3.5-5.1) L 03/24/24 04:41
Chloride 110 mmol/L (98-107) H 03/24/24 04:41
Carbon Dioxide 29 mmol/L (22-30) 03/24/24 04:41
BUN 18 mg/dl (7-17) H 03/24/24 04:41
Creatinine 1.2 mg/dL (0.6-1.0) H 03/24/24 04:41
eGFR 46.05 03/24/24 04:41
Glucose 89 mg/dl (70-99) 03/24/24 04:41
Calcium 9.8 mg/dl (8.4-10.2) 03/24/24 04:41
Phosphorus Cancelled 03/22/24 21:00
Kup-S-Jowqvcycaoz Pept 842 pg/ml 03/23/24 09:04
Albumin 2.8 g/dl (3.5-5.0) L 03/23/24 13:33
Physical Exam
-
Vital Signs:
Vital Signs
Temp Pulse Resp BP Pulse Ox
98 F 72 21 113/61 96
03/24/24 07:45 03/24/24 09:00 03/24/24 09:00 03/24/24 09:00 03/24/24 09:00
Cardiovascular:: Regular rate and rhythm
Respiratory:: Bilateral: Coarse
Lung Excursion:: Normal
Abdomen:: Nontender and Soft
Bowel Sounds:: Normal
Extremity Edema:: None: Bilateral:
--- NOTE | 2024-03-24 10:06 | PTCARENOTE ---
Seen by PT....min assist x 1-2 w/ walker to get OOB.
--- NOTE | 2024-03-24 12:35 | CON.MD ---
Consultation - Medical
-
patient seen chart reviewed. discussed with nursing. the patient is a 78 year old woman who recently suffered diverticulitis w colonic perforation for which she underwent surgery including colostomy. she was hospitalized at [facility] for a
couple of weeks before being tf to snf and then to home a little over a month ago. she was brought to w cc of fatigue n/v weakness. since coming a number of issues have been addressed including dehydration hypothyroid with a tsh of 21 (synthroid
increased from 25 to 50) hypokalemia, hypercalcemia (renal following parathyroid workup ca is now nl). ua appeared infected although urine culture without growth. she also has hx paroxysmal a fib, htn PE and significantly anemia with hgb of 8+ (she
reports constant thirst ). 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 the patient became unresponsive yesterday and a rapid response called. she is now back to normal mental status. nursing felt
that she was simply overwhelmed and the consensus seems to be that this was psychological not medically related. the patient acknowledges she has changed since the abdominal surgery. she says 'when will it end?' meaning the fallout from the surgery
not her life. she says she feels her memory is slipping (she was fully oriented and able to carry on a very good conversation with me). her appetite is nil. 'i can't eat meat and potatoes' neither are fish or chicken appealing to her. she wants to
sleep all of the time. she was a person with many interests hiking walking reading wunderlooping and now does not have the energy to do anything. she did not remember the incident of non responsiveness yesterday and did not know she was taking
an antidepressant (wellbutrin) she would not have described herself as depressed but rather disappointed and unhappy w medical issues
past psych hx denied although she has been on wellbutrin for a short time
medical see above
fh non contributory
substance abuse denied
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 she met her h at school. she is . she has two kids who are supportive and four granddaughters. before this incident she lived alone and would have said she has
friends and interests
mse alert ox3 cooperative patient is rather frail and weak appearing. speech and thought process nl no psychosis mood is unhappy affect appropriate no si aver intelligence insight judgment okay
dx r/o unspecified depression
recommendations for now would dc wellbutrin as dr stevens recommended in his neuro consult given inc risk of sz w wellbutrin. i would not have chosen wellbutrin as first line. would suggest remeron might be better given its + effect on appetite .
for now would monitor as her medical needs are addressed and leave the ? of antidep for later. would suggest that she has numerous reasons to be FTT. consider dietary supplements eg ensure boost etc address anemia which is significant thyroid is
being corrected. i suspect with time and rx of these underlying conditions patient mood will improve if not then consider remeron or other antidep. consider recheck of urine culture given ua really looked infected. nursing already collected urine
for other testing and will repeat culture as an add on. psych will follow
--- NOTE | 2024-03-24 12:44 | PTCARENOTE ---
Report called to 3rd floor...pt to transfer to Room 337-1.
[2024-03-24 13:14] LABS: Urine Albumin Negative (Neg - Trace); Urine Bilirubin Negative (Negative); Urine Character Clear (Clear); Urine Color Yellow; Urine Glucose Negative (Negative); Urine Ketone Negative (Negative); Urine Leukocyte Negative (Negative); Urine Nitrite Negative (Negative); Urine Occult Blood 1+ (Negative); Urine Urobilinogen Negative (Neg - 1+)
[2024-03-24 13:53] LABS: Urine Amorphous Seen; Urine Bacteria Few (Negative)
--- NOTE | 2024-03-24 16:27 | PTCARENOTE ---
Approx 1400, received pt from ICU, report from Serene Wheeler RN. Pt oriented to room, toileted upon arrival. Purewick placed, colostomy bag checked. VSS stable, oriented to room, call bed in reach, education videos played. Pt resting comfortably, no
c/o pain or discomfort.
[2024-03-24] MEDS: CARDIZEM CD 120 MG PO (21:43)
[2024-03-25] MEDS: APRESOLINE IV ×3 (04:38→23:48)
[2024-03-25 04:53] VITALS: BP 145/78
[2024-03-25] MEDS: SYNTHROID 50 MCG PO (05:22)
[2024-03-25 05:37] LABS: Hematocrit 25.6 % (37.0-47.0); Hemoglobin 8.4 g/dL (12.0-16.0); Mean Corp Hgb Conc. 32.8 g/dL (33.0-37.0); Mean Corpuscular Hgb 28.6 pg (27.0-31.0); Mean Corpuscular Volume 87.1 fL (81.0-99.0); Mean Platelet Volume 10.6 fL (7.4-10.4); Platelet Count 480 10^3/uL (130-400); Red Blood Cell Count 2.94 10^6/uL (4.20-5.40); Red Cell Dist. Width 14.9 % (11.5-14.5); White Blood Cell Count 12.7 10^3/uL (4.8-10.8)
[2024-03-25 06:00] VITALS: BMI 26.5
[2024-03-25 06:18] LABS: ALT (SGPT) 12 U/L (0-35); AST (SGOT) 22 U/L (14-36); Albumin 2.7 g/dl (3.5-5.0); Alkaline Phosphatase 80 U/L (38-126); Blood Urea Nitrogen 15 mg/dl (7-17); Calcium 9.4 mg/dl (8.4-10.2); Carbon Dioxide 24 mmol/L (22-30); Chloride 108 mmol/L (98-107); Estimated Creatinine Clearance 34 ml/min; Glucose 87 mg/dl (70-99); Magnesium 1.8 mg/dl (1.6-2.3); Potassium 3.5 mmol/L (3.5-5.1); Sodium 137 mmol/L (135-145); Total Bilirubin 0.4 mg/dl (0.2-1.3); Total Protein 5.3 g/dl (6.3-8.2); eGFR 51.11
--- NOTE | 2024-03-25 06:30 | PTCARENOTE ---
Pt. exited room with rw by herself claiming 'I need to get up and walk around.' Staff assisted patient for a walk around the unit x1 assist with rw. Bed alarm placed for safety. Purewick removed as patient now more mobile. Encouraged patient to use
call arellano. Call arellano within reach. Plan of care ongoing.
[2024-03-25 07:00] VITALS: BP 161/80
[2024-03-25] MEDS: PULMICORT 0.5 MG INH ×2 (08:21→20:06)
[2024-03-25] MEDS: VITAMIN D3 (cholecalciferol) 25 MCG PO (08:28)
[2024-03-25] MEDS: FLORASTOR 250 MG PO ×2 (08:28→21:10)
[2024-03-25] MEDS: ELIQUIS 5 MG PO ×2 (08:28→21:10)
[2024-03-25] MEDS: THERAGRAN 1 TABLET PO (08:28)
[2024-03-25] MEDS: COZAAR 25 MG PO (08:29)
[2024-03-25] MEDS: SENOKOT 17.1999999999999993 MG PO (08:29)
[2024-03-25] MEDS: COLACE 100 MG PO ×2 (08:29→21:10)
[2024-03-25] MEDS: KCL 40 MEQ PO ×2 (08:31→21:10)
[2024-03-25] MEDS: APRESOLINE 5 MG IV ×3 (08:31→18:02)
[2024-03-25] MEDS: ZOFRAN 4 MG IV ×2 (08:36→18:02)
--- NOTE | 2024-03-25 08:36 | W.PN.HOSP.TC ---
Addendum entered and electronically signed by Drake Markham MD 03/25/24 16:32:
Gluteal cleft pressure ulcer stage
Addendum entered and electronically signed by Drake Markham MD 03/25/24 16:30:
Multifactorial toxic metabolic encephalopathy from urinary tract infection, metabolic derangements from hypercalcemia on presentation also dehydrated
Original Note:
Today's Communication/Plan
-
Encouraged to ask for Zofran when she is nauseous before meals
Will start Remeron
Bupropion has been discontinued
Will need SNF for rehab
Assessment / Plan
Assessment / Plan
pt is a 78 year old female
unresponsiveness--led to rapid response--work up negative--apprec neuro--seems behavioral (? depression)--consult psych--restarted bupropion but may need different drug/discontinue bupropion
-At this point depression seems to be the overriding symptom complex is contributing to her failure to thrive and lack of appetite/add Remeron/welcome psychiatry further input
weakness/fatigue/sleepiness/n/v--could be infectious as UA positive but urine culture no growth--had been on outpt abx (unknown which one) so culture may not be accurate; could be due to hypercalcemia (ca 15 with high ionized calcium)--stop zosyn
and IVF for now--CT scan without mention of renal stones
Dehydration - decreased po intake with contraction alkalosis--stop IV--diet as tolerated--holding calcium carbonate --dietary consult
Hypothyroid -- TSH 21.7--increase synthroid to 50 mcg from 25
Hypercalcemia - Patient dehydrated and on continued vitamin D and calcium supplementation---ionized ca high--apprec renal--iPTH normal, PTH related peptide pending vitamin D level low--calcium now WNL--s/p calcitonin and pamidronate
Hypokalemia - Suspect due to dehydration and on low dose furosemide--mag WNL--replete
Essential HTN - Patient quite hypertensive to 200 systolic on admission--cont losartan, IV hydralazine and on diltiazem too
paroxysmal AFIB - Patient on apixaban 5 bid and diltiazem-- Rate controlled currently--continue eliquis and diltiazem for now--requested records from outside hospital
Colectomy - Despite examination earlier by outside surgeon in their office, CT scan shows multiple findings (Inflammation and foci of soft tissue gas along the midline anterior abdominal wall incision, which may be postoperative or infectious)--stop
IV zosyn--apprec surgery input--nothing to do
DVT PPX - apixaban
Code status - Full Code
Anticipated Discharge: Within 24 hours
Subjective/Interval History
-
Date of Service: March 25, 2024
She is a vague historian intermittently states she is nauseous this morning but contradicts herself later states that she last vomited 2 to 3 days ago but none since. She is not asking for anything for her nausea states that thinking of food may
make her nauseous. Have asked her to try and take nausea medication before she tries to eat.
Objective Data
-
Labs:
Laboratory Results
03/25/24
05:13
WBC 12.7 H
Hgb 8.4 L
Hct 25.6 L
Plt Count 480 H
Sodium 137
Potassium 3.5
Chloride 108 H
Carbon Dioxide 24
BUN 15
Creatinine 1.1 H
Glucose 87
Calcium 9.4
Total Bilirubin 0.4
AST 22
ALT 12
Alkaline Phosphatase 80
Vital Signs:
Vital Signs
Temp Pulse Resp BP Pulse Ox
98.1 F 68 16 161/80 97
03/25/24 07:00 03/25/24 08:30 03/25/24 08:30 03/25/24 07:00 03/25/24 08:30
I&O
03/24/24 03/25/24 03/26/24
06:59 06:59 06:59
Intake Total 3295.0 / 3370.0 2685 / 2685
Output Total 1130 / 1130 1700 / 1700
Balance 2165.0 / 2240.0 985 / 985
Review of Systems
-
Unable to obtain full review of systems at this time due to: Dementia
History Source: Patient
All other systems: Reviewed and negative
Constitutional: Reports No Appetite and Weakness
Respiratory: Reports No Symptoms
Cardiac: Reports No Symptoms
Abdomen/GI: Reports No Symptoms and Nausea; Denies Abdominal Pain or Vomiting
Physical Exam
-
General: Well Developed
HEENT: Normocephalic
Respiratory: Clear to Auscultation
Cardiac: Regular Rhythm
GI: Soft, Nontender and Nondistended
Neuro: Awake and Alert
Psych: Depressed
Data Reviewed
-
Total Time Spent with Patient (in minutes): 56
Diagnostic Radiology: Report Reviewed by me
CT Scan: Report Reviewed by me
Labs: Labs Reviewed by me
[2024-03-25 11:00] VITALS: BP 123/64
--- NOTE | 2024-03-25 11:55 | CM ---
Addendum entered by Elizabeth Sheikh 03/25/24 16:16:
Additional snf choices received - sent in [facility]
Awaiting response
Addendum entered by Elizabeth Sheikh 03/25/24 13:22:
Spoke with pts daughter, Brooke and son.
Family agrees SNF would benefit mother
Offered choices - instructed to look at facility's on [email or web address]. Referral sent to the [facility]. Family will look at other options and call or email CM.
Plan - anticipate snf - TBD, when medically ready
Original Note:
Case management following for d/c planning
PT recommending SNF vs HH - pt accepted by [facility] for [facility]
Discussed SNF vs HH with pts daughter Brooke - would like update from physician
TT sent to pts physician - re - update pts daughter
Plan - tbd - anticipate SNF vs HH when medically ready
--- NOTE | 2024-03-25 14:14 | W.PN.NEPH.PH ---
Today's Communication / Plan
-
check paraprotein w/u , await PTHrP
no IVF
follow labs
Assessment/Plan
-
Assessment:
Failure to thrive, weakness
Hypercalcemia
Hypertension
Volume depletion
Recent colectomy with colostomy
Pulmonary embolism
Hypokalemia
Plan:
GALILEO-improving cr to 1.1
hypercalcemia-w/u in progress
s/p IVF, pamidronate and calcitonin
corrected ismael 10.4
PTH suppressed, PTHrP pending
check paraprotein w/u
[facility]
K is normal, hold kcl
likely SNF at d.c
d/w nursing
-
-
Date of Service: March 25, 2024
CC / HPI / ROS
-
Chief Complaint:
hypercalcemia
History of Present Illness:
K better at 3.5
GALILEO/Cr down to 1.1
Calcium better at 9.4 with calcitonin/pamidronate 03/22
BP stable
Review of Systems:
no CP/SOB
forgetful
Labs
-
Labs:
WBC 12.7 10^3/uL (4.8-10.8) H 03/25/24 05:13
RBC 2.94 10^6/uL (4.20-5.40) L 03/25/24 05:13
Hgb 8.4 g/dL (12.0-16.0) L 03/25/24 05:13
Hct 25.6 % (37.0-47.0) L 03/25/24 05:13
Plt Count 480 10^3/uL (130-400) H 03/25/24 05:13
Sodium 137 mmol/L (135-145) 03/25/24 05:13
Potassium 3.5 mmol/L (3.5-5.1) 03/25/24 05:13
Chloride 108 mmol/L (98-107) H 03/25/24 05:13
Carbon Dioxide 24 mmol/L (22-30) 03/25/24 05:13
BUN 15 mg/dl (7-17) 03/25/24 05:13
Creatinine 1.1 mg/dL (0.6-1.0) H 03/25/24 05:13
eGFR 51.11 03/25/24 05:13
Glucose 87 mg/dl (70-99) 03/25/24 05:13
Calcium 9.4 mg/dl (8.4-10.2) 03/25/24 05:13
Phosphorus Cancelled 03/22/24 21:00
Jha-T-Hzrbfxuqkue Pept 842 pg/ml 03/23/24 09:04
Albumin 2.7 g/dl (3.5-5.0) L 03/25/24 05:13
Physical Exam
-
Vital Signs:
Vital Signs
Temp Pulse Resp BP Pulse Ox
98.9 F 79 18 123/64 94
03/25/24 11:00 03/25/24 11:00 03/25/24 11:00 03/25/24 11:00 03/25/24 11:00
Cardiovascular:: Regular rate and rhythm
Respiratory:: Bilateral: CTA
Lung Excursion:: Normal
Abdomen:: Nontender and Soft
Extremity Edema:: None: Bilateral:
Tanner Catheter: No
[2024-03-25 15:00] VITALS: BP 171/85
--- NOTE | 2024-03-25 15:21 | PN.CDI ---
CDI
- -
CDI:
Physician Documentation Request
Admit Date: 03/21/24 23:28
Dear Doctor Rashi,
Clinical Indicators:
Patient admitted with lethargy and altered mental status.
03/24 Neurology consult,'Some potential toxic metabolic encephalopathy from mild GALILEO, UTI, metabolic derangements.'
03/25 PN, 'unresponsiveness--led to rapid response--work up negative--apprec neuro--seems behavioral (? depression)'
Due to potentially conflicting documentation, please clarify the most likely etiology of the confusion/altered mental status.
Multifactorial due to toxic metabolic encephalopathy and depression
Depression only
Other,please specify
Use of terms such as suspected, likely, concern for, or probable (associated with a specific diagnosis that is being evaluated, monitored, or treated as if it exists) are acceptable and can be coded in the inpatient setting, when documented at the
time of discharge.
Thank you,
PAYAL Gunn RN
CDI Specialist
available via tiger text
Please use your independent medical judgment in providing your response.
--- NOTE | 2024-03-25 15:31 | PN.CDI ---
CDI
- -
CDI:
Physician Documentation Request
Admit Date: 03/21/24 23:28
Dear Doctor Rashi,
Clinical Indicators:
Patient admitted with lethargy and altered mental status.
03/22 WO RN skin /wound assessment: Gluteal cleft Stage 2 Pressure Injury, POA.
Physician documentation of the type and location of wounds is required for compliant documentation. Based on the above clinical findings and your assessment, please provide the following in your progress note:
1. Location of the ulcer/wound, including laterality.
2. Type (etiology) of ulcer/wound:
- Pressure (decubitus) ulcer
- Other, please specify
3. If a pressure ulcer, please also include the stage* of the ulcer:
- Stage 1 - Skin intact, non-blanchable redness
- Stage 2 - Partial thickness loss of dermis, includes intact or open blister
- Stage 3 - Full thickness tissue not including bone, tendon or muscle
- Stage 4 - Full thickness tissue loss, including exposed bone, tendon or muscle
- Unstageable - Full thickness loss in which the base of the ulcer is covered by slough (yellow, kruse, pitts, green or brown) and/or eschar (kruse, brown or black) in the wound bed.
- Unable to determine
Use of terms such as suspected, likely, concern for, or probable (associated with a specific diagnosis that is being evaluated, monitored, or treated as if it exists) are acceptable and can be coded in the inpatient setting, when documented at the
time of discharge.
Thank you,
PAYAL Gunn RN
CDI Specialist
available via tiger text
Please use your independent medical judgment in providing your response.
*Source: National Pressure Ulcer Advisory Panel (NPUAP)
[2024-03-25 16:12] LABS: Protein/creatinine Ratio 0.7; Urine Protein 19 mg/dl
[2024-03-25 19:36] VITALS: BP 143/69
[2024-03-25] MEDS: REMERON 7.5 MG PO (21:10)
[2024-03-25] MEDS: CARDIZEM CD 120 MG PO (21:11)
[2024-03-25 23:47] VITALS: BP 100/72
[2024-03-26 03:24] VITALS: BP 163/74
[2024-03-26] MEDS: APRESOLINE 5 MG IV (03:39)
[2024-03-26 04:42] VITALS: BMI 26.5
[2024-03-26] MEDS: SYNTHROID 50 MCG PO (05:49)
[2024-03-26 06:22] LABS: Hematocrit 26.9 % (37.0-47.0); Hemoglobin 8.7 g/dL (12.0-16.0); Mean Corp Hgb Conc. 32.3 g/dL (33.0-37.0); Mean Corpuscular Hgb 28.2 pg (27.0-31.0); Mean Corpuscular Volume 87.1 fL (81.0-99.0); Mean Platelet Volume 10.4 fL (7.4-10.4); Platelet Count 469 10^3/uL (130-400); Red Blood Cell Count 3.09 10^6/uL (4.20-5.40); White Blood Cell Count 11.3 10^3/uL (4.8-10.8)
[2024-03-26 07:41] LABS: Blood Urea Nitrogen 11 mg/dl (7-17); Calcium 9.6 mg/dl (8.4-10.2); Carbon Dioxide 23 mmol/L (22-30); Chloride 109 mmol/L (98-107); Estimated Creatinine Clearance 38 ml/min; Glucose 82 mg/dl (70-99); Potassium 4.1 mmol/L (3.5-5.1); Sodium 137 mmol/L (135-145); eGFR 57.31
[2024-03-26] MEDS: SENOKOT 17.1999999999999993 MG PO (07:44)
[2024-03-26] MEDS: FLORASTOR 250 MG PO (07:44)
[2024-03-26] MEDS: KCL 40 MEQ PO (07:45)
[2024-03-26] MEDS: THERAGRAN 1 TABLET PO (07:45)
[2024-03-26] MEDS: APRESOLINE IV ×3 (07:45→16:14)
[2024-03-26] MEDS: VITAMIN D3 (cholecalciferol) 25 MCG PO (07:45)
[2024-03-26] MEDS: ELIQUIS 5 MG PO (07:45)
[2024-03-26] MEDS: COLACE 100 MG PO (07:45)
[2024-03-26] MEDS: COZAAR 25 MG PO (07:46)
[2024-03-26 08:05] VITALS: BP 147/87
--- NOTE | 2024-03-26 08:21 | W.PN.HOSP.TC ---
Today's Communication/Plan
-
Medically stable for discharge to a rehab facility once obtained
Assessment / Plan
Assessment / Plan
pt is a 78 year old female
unresponsiveness--led to rapid response--work up negative--apprec neuro--seems behavioral (? depression)--consult psych--restarted bupropion but may need different drug/discontinue bupropion
-At this point depression seems to be the overriding symptom complex is contributing to her failure to thrive and lack of appetite/add Remeron/welcome psychiatry further input/patient and daughter agreeable to SNF placement for further improvement
in conditioning
weakness/fatigue/sleepiness/n/v--could be infectious as UA positive but urine culture no growth--had been on outpt abx (unknown which one) so culture may not be accurate; could be due to hypercalcemia (ca 15 with high ionized calcium)--stop zosyn
and IVF for now--CT scan without mention of renal stones
Dehydration - decreased po intake with contraction alkalosis--stop IV--diet as tolerated--holding calcium carbonate --dietary consult
Hypothyroid -- TSH 21.7--increase synthroid to 50 mcg from 25
Hypercalcemia - Patient dehydrated and on continued vitamin D and calcium supplementation---ionized ca high--apprec renal--iPTH normal, PTH related peptide pending vitamin D level low--calcium now WNL--s/p calcitonin and pamidronate
Hypokalemia - Suspect due to dehydration and on low dose furosemide--mag WNL--replete
Essential HTN - Patient quite hypertensive to 200 systolic on admission--cont losartan, IV hydralazine and on diltiazem too
paroxysmal AFIB - Patient on apixaban 5 bid and diltiazem-- Rate controlled currently--continue eliquis and diltiazem for now--requested records from outside hospital
Colectomy - Despite examination earlier by outside surgeon in their office, CT scan shows multiple findings (Inflammation and foci of soft tissue gas along the midline anterior abdominal wall incision, which may be postoperative or infectious)--stop
IV zosyn--apprec surgery input--nothing to do
DVT PPX - apixaban
Code status - Full Code
Anticipated Discharge: Today
Subjective/Interval History
-
Date of Service: March 26, 2024
Patient feeling better was ambulatory yesterday bed no longer with any nausea/agreeable to SNF placement and spoke to patient's daughter yesterday who is in agreement also
Objective Data
-
Labs:
Laboratory Results
03/26/24
06:09
WBC 11.3 H
Hgb 8.7 L
Hct 26.9 L
Plt Count 469 H
Sodium 137
Potassium 4.1
Chloride 109 H
Carbon Dioxide 23
BUN 11
Creatinine 1.0
Glucose 82
Calcium 9.6
Vital Signs:
Vital Signs
Temp Pulse Resp BP Pulse Ox
98.6 F 86 16 147/87 97
03/26/24 08:05 03/26/24 08:05 03/26/24 08:05 03/26/24 08:05 03/26/24 08:05
I&O
03/25/24 03/26/24 03/27/24
06:59 06:59 06:59
Intake Total 2685 / 2685 960 / 960
Output Total 1700 / 1700
Balance 985 / 985 960 / 960
Data Reviewed
-
Total Time Spent with Patient (in minutes): 56
Labs: Labs Reviewed by me (Leukocytosis continues to trend down hemoglobin stable 8.7/chemistry stabilized protein electrophoresis still pending)
--- NOTE | 2024-03-26 10:36 | W.PN.NEPH.PH ---
Today's Communication / Plan
-
at need f/u pending labs with PCP
Assessment/Plan
-
Assessment:
Failure to thrive, weakness
Hypercalcemia
Hypertension
Volume depletion
Recent colectomy with colostomy
Pulmonary embolism
Hypokalemia
Plan:
GALILEO-improving cr to 1
hypercalcemia-w/u in progress
s/p pamidronate and calcitonin
corrected ismael 10.6
PTH suppressed, PTHrP pending
pending paraprotein w/u
Obtain records from [facility]
K is normal, hold kcl
likely SNF at d.c
-
-
Date of Service: March 26, 2024
CC / HPI / ROS
-
Chief Complaint:
hypercalcemia
History of Present Illness:
K better at 4.1
GALILEO/Cr down to 1.
Calcium better at 9.6 with calcitonin/pamidronate 03/22
BP stable
Review of Systems:
no CP/SOB
forgetful
Labs
-
Labs:
WBC 11.3 10^3/uL (4.8-10.8) H 03/26/24 06:09
RBC 3.09 10^6/uL (4.20-5.40) L 03/26/24 06:09
Hgb 8.7 g/dL (12.0-16.0) L 03/26/24 06:09
Hct 26.9 % (37.0-47.0) L 03/26/24 06:09
Plt Count 469 10^3/uL (130-400) H 03/26/24 06:09
Sodium 137 mmol/L (135-145) 03/26/24 06:09
Potassium 4.1 mmol/L (3.5-5.1) 03/26/24 06:09
Chloride 109 mmol/L (98-107) H 03/26/24 06:09
Carbon Dioxide 23 mmol/L (22-30) 03/26/24 06:09
BUN 11 mg/dl (7-17) 03/26/24 06:09
Creatinine 1.0 mg/dL (0.6-1.0) 03/26/24 06:09
eGFR 57.31 03/26/24 06:09
Glucose 82 mg/dl (70-99) 03/26/24 06:09
Calcium 9.6 mg/dl (8.4-10.2) 03/26/24 06:09
Phosphorus Cancelled 03/22/24 21:00
Pjm-S-Wikumqgxhjk Pept 842 pg/ml 03/23/24 09:04
Albumin 2.7 g/dl (3.5-5.0) L 03/25/24 05:13
Physical Exam
-
Vital Signs:
Vital Signs
Temp Pulse Resp BP Pulse Ox
98.6 F 86 16 147/87 97
03/26/24 08:05 03/26/24 08:05 03/26/24 08:05 03/26/24 08:05 03/26/24 08:05
Cardiovascular:: Regular rate and rhythm
Respiratory:: Bilateral: CTA
Lung Excursion:: Normal
Abdomen:: Nontender and Soft
Extremity Edema:: None: Bilateral:
Tanner Catheter: No
[2024-03-26 11:15] VITALS: BP 132/88; BP 170/83; PULSE 98
[2024-03-26 11:16] VITALS: BP 132/88; BP 170/83; PULSE 85; O2SAT 96
[2024-03-26 11:29] VITALS: BP 132/88
--- NOTE | 2024-03-26 11:30 | W.PN.UPDATE ---
Update Note
Progress Note Update
Patient seen at bedside, chart reviewed, discussed with staff. Patient sleepy but was up early. She did eat breakfast which was a good change. No acute issues overnight. No complaints or issues to discuss. Anticipated for DC to SNF.
Impression/Recommendations: Unspecified depression, R/O - Remeron initiated and patient did eat this AM and reportedly slept well although this was not the specific purpose of the medication, a benefit all the same, would continue at 7.5mg HS. .
--- NOTE | 2024-03-26 13:08 | CM ---
Case Management following for d/c planning
Pt for d/c today-
Reevaluated by PT/OT - recommending home with home health
Dr Markham made aware
Discussed with pts daughter Brooke
Pt prefers to go home
Pt accepted for [facility] for [facility]/PT/OT
Son plans to stay with pt for a few days and pts daughter available
Family will transport home
Discussed IMM with daughter
Plan - home with [facility]
Fax - [phone]
--- NOTE | 2024-03-26 13:17 | W.DCSUMMARY ---
Discharge Summary
Discharge Data
Date of Admission: 03/21/24
Date of Discharge: 03/26/24
Total time spent discharging patient (in min): 40
-
Pending Results: No
Hospital Course
78-year-old female who presented on 21 March discharged 26 March with past medical history of recent perforated diverticulum status post colectomy and end colostomy at [facility] who presented to the emergency department with number of
complaints including weakness fatigue nausea vomiting and chills she describes a generalized failure to thrive with increasing weakness fatigue and sleepiness after admission to the medical service and finding of the patient to be significantly
prerenal depleted dehydrated with abnormalities including chemistries that showing a significant amount of hypercalcemia hypokalemia and evidence of elevated TSH in setting of undertreated hypothyroidism that patient underwent nephrology
consultation with correction of her hypercalcemia with combination of calcitonin and pamidronate she still has a pending protein electrophoresis to assess paraproteins and we have discontinued her calcium supplementation and the course of therapy
intact PTH was normal and PTH related peptide is still pending. With her vitamin D level noted below the patient was continued on cholecalciferol. She responded to IV correction of her contraction alkalosis although there is a reported abnormality
on her CT imaging posterior colectomy on presentation inflammation and foci of soft tissue and gas around the midline of the anterior abdominal incision was felt to be in relation to postoperative changes and none felt to be infectious empiric
antibiotics were discontinued and surgical consultation input related no interventions on their part were warranted. She had an episode of unresponsiveness that prompted an admission to the ICU but on further workup including a neurologic
evaluation it was felt that the patient may be suffering from a behavioral issue and psychiatry was consulted and felt the overriding symptom complex at this time and possibly explaining her ongoing failure to thrive poor appetite and generalized
weakness with were in relation to depression neurology felt that the bupropion she had been on should be discontinued as it would also lower her seizure threshold should that happen because of her unresponsiveness which was less likely. Psychiatry
felt that alternative management with Remeron may also prompt some improvement in her appetite and she was started on this prior to her discharge with some improvement she is no longer expressing any elements of nausea and has been more active and
after the initial course of recommendation from PT/OT recommending rehab she is improved to the point that now warrants follow-up and home care setting with VNA follow-up. Daughter is in agreement with this plan at this point her discharge will be
for home VNA and medication changes include discontinuation of her calcium supplementations continuation of vitamin D we have increased her levothyroxine dosing from 25 mcg to 50 mcg daily and this should be rechecked with a TSH and free T4 in
approximating 4 to 6 weeks she will continue on rate management for her A-fib with diltiazem 120 mg daily and apixaban 5 mg twice daily furosemide can be read resumed at discharge to 20 mg
Discharge Plan
-
Patient Disposition: Home with Home Care
Discharge Diagnosis/Procedures: Acute hypercalcemia
Dehydration
Hypothyroidism
Status post recent colectomy
Paroxysmal atrial fibrillation
In underlying depression
Diet: Regular
Activity: As tolerated
Driving Restrictions: No driving
Activity Restrictions/Additional Instructions:
Wound Care Instructions Sacrum- Clean with normal saline or soap and water. Apply no-sting barrier around wounds and cover with silicone border foam. Change Q 3 days and PRN for loose or for drainage.
Follow up at wound care center call for an appointment.
Referrals:
Murphy Mcqueen DO [Family Provider] - in one to two weeks (Need to follow-up results of paraprotein analysis and protein electrophoresis and PTH)
Prescriptions:
New
polyethylene glycol 3350 [HealthyLax] 17 gram Powder In Packet
17 g PO DAILYPRN PRN (Reason: constipation) Qty: 30 0RF
potassium chloride 20 mEq Tablet,Er Particles/Crystals
40 meq PO BID Qty: 60 0RF
levothyroxine 50 mcg Tablet
50 mcg PO DAILY@0600 Qty: 30 0RF
mirtazapine 7.5 mg Tablet
7.5 mg PO HS Qty: 30 0RF
Continued
multivitamin Tablet
1 tab PO DAILY
sennosides [senna] 8.6 mg Tablet
17.2 mg PO DAILY
acetaminophen 325 mg Tablet
650 mg PO Q6H PRN (Reason: mild pain/fever)
diltiazem HCl 120 mg Tablet
120 mg PO HS
losartan 25 mg Tablet
25 mg PO DAILY
docusate sodium 100 mg Capsule
100 mg PO BID
budesonide 0.5 mg/2 mL Suspension For Nebulization
0.5 mg INHALATION R Q12
furosemide 20 mg Tablet
20 mg PO DAILY
Saccharomyces boulardii [Florastor] 250 mg Capsule
250 mg PO BID
cholecalciferol (vitamin D3) [Vitamin D3] 25 mcg (1,000 unit) Tablet
25 mcg PO DAILY
apixaban 5 mg Tablet
5 mg PO BID
Probiotic 100 billion cell Capsule
1 cap PO MEALS
Discontinued
levothyroxine 25 mcg Tablet
25 mcg PO DAILY
calcium carbonate-vitamin D3 [Calcium 500 + D (D3)] 500 mg-3.125 mcg (125 unit) Tablet
1 tab PO BID
nitrofurantoin macrocrystal 100 mg Capsule
100 mg PO Q12
bupropion HCl 150 mg Tablet Extended Release 24 Hr
150 mg PO DAILY
Discharge Orders:
Discharge Patient (As Directed); Ordered 03/26/24
Ordered By: Drake Markham
Discharge Date and Time
Print Language: LATVIAN
--- NOTE | 2024-03-26 13:28 | W.DS.TRANS ---
DC Summary - [employer]
-
Discharge Instructions:
Discharge Diagnosis/Procedures Acute hypercalcemia
Dehydration
Hypothyroidism
Status post recent colectomy
Paroxysmal atrial fibrillation
In underlying depression
Diet Regular
Activity As tolerated
Driving Restrictions No driving
Instructions:
Stand-Alone Forms:
Changes to Home Medications: Yes
Discharge Medications:
DC Medications w/original date entered in [facility]
Lactobacillus 40-Bifidobact 3-S.thermophilus 100 billion cell capsule (Probiotic) 1 cap PO MEALS probiotic 03/21/24
Saccharomyces boulardii 250 mg capsule (Florastor) 250 mg PO BID probiotic 03/21/24
acetaminophen 325 mg tablet 650 mg PO Q6H PRN mild pain/fever 03/21/24
apixaban 5 mg tablet 5 mg PO BID Blood Clot Prevention/Tx 03/21/24
budesonide 0.5 mg/2 mL suspension for nebulization 0.5 mg inhalation R Q12 Lung/Breathing Issues 03/21/24
cholecalciferol (vitamin D3) 25 mcg (1,000 unit) tablet (Vitamin D3) 25 mcg PO DAILY Supplement 03/21/24
diltiazem HCl 120 mg tablet 120 mg PO HS Blood Pressure 03/21/24
docusate sodium 100 mg capsule 100 mg PO BID Constipation 03/21/24
furosemide 20 mg tablet 20 mg PO DAILY Fluid Retention/Swelling 03/21/24
losartan 25 mg tablet 25 mg PO DAILY Blood Pressure 03/21/24
multivitamin 1 tab PO DAILY Supplement 03/21/24
sennosides 8.6 mg tablet (senna) 17.2 mg PO DAILY Constipation 03/21/24
levothyroxine 50 mcg tablet 50 mcg PO DAILY@0600 Supplement #30 tabs 03/26/24
mirtazapine 7.5 mg tablet 7.5 mg PO HS #30 tabs 03/26/24
polyethylene glycol 3350 17 gram oral powder packet (HealthyLax) 17 g PO DAILYPRN PRN constipation #30 ea 03/26/24
potassium chloride 20 mEq tablet,extended release(part/cryst) 40 meq (2 x 20 mEq) PO BID #60 tabs 03/26/24
Home Medication Changes
sennosides 8.6 mg tablet (senna) 17.2 mg PO DAILY Constipation 03/21/24
levothyroxine 50 mcg tablet 50 mcg PO DAILY@0600 Supplement #30 tabs 03/26/24
mirtazapine 7.5 mg tablet 7.5 mg PO HS #30 tabs 03/26/24
polyethylene glycol 3350 17 gram oral powder packet (HealthyLax) 17 g PO DAILYPRN PRN constipation #30 ea 03/26/24
potassium chloride 20 mEq tablet,extended release(part/cryst) 40 meq (2 x 20 mEq) PO BID #60 tabs 03/26/24
Pending Results: No
Total time spent discharging patient (in min): 40
--- NOTE | 2024-03-26 14:34 | PTCARENOTE ---
RN- flow faciliator- Patient cleared for d/c. Patient waiting for son who as per daughter left and will come to floor when he gets here.
[2024-03-26 15:30] VITALS: BP 142/86
[2024-03-28 12:21] LABS: 24 Hour Urine Total Volume Random mL; Urine Collection Length Random hr; Urine Free Kappa Light Chains 37.03 mg/L (0.00-32.90); Urine Free Lambda Light Chains 10.04 mg/L (0.00-3.79)
[2024-03-29 13:28] LABS: Albumin 2.65 g/dL (3.75-5.01); Alpha 1 Globulin 0.41 g/dL (0.19-0.46); Alpha 2 Globulin 0.96 g/dL (0.48-1.05); Free Kappa Light Chains,Quant 40.15 mg/L (3.30-19.40); Free Lambda Light Chains,Quant 33.14 mg/L (5.71-26.30); IgA 201 mg/dL (68-408); IgG 875 mg/dL (768-1632); IgM 55 mg/dL (35-263); Immunofixation Electrophoresis IFE Done; Kappa/Lambda Fr Light Ratio 1.21 (0.26-1.65); Total Protein-Electrophoresis 5.6 g/dL (6.3-8.2)
[2024-04-01 04:14] LABS: PTH Related Peptide LC-MS/MS <2.0 pmol/L (0.0-3.4)
== END 2024-03-26 16:15 | disposition home health service (06) | DRG 92 ==
LOC: 3 WEST ACU 23:28
PROVIDERS: Emergency Medicine; Internal Medicine; Physician Assistant; ADMITTING PHYSICIAN Internal Medicine; ATTENDING PHYSICIAN Internal Medicine; CONSULT PHYSICIAN Psychiatry & Neurology Psychiatry; CONSULT PHYSICIAN Specialist; CONSULT PHYSICIAN Student in an Organized Health Care Education/Training Program; CONSULT PHYSICIAN Surgery; EMERGENCY PHYSICIAN Emergency Medicine; FAMILY PHYSICIAN Family Medicine; OTHER PHYSICIAN Internal Medicine Critical Care Medicine
DX: G92.8 Other toxic encephalopathy (principal); E87.3 Alkalosis; N17.9 Acute kidney failure, unspecified; N30.91 Cystitis, unspecified with hematuria; E83.52 Hypercalcemia; E86.0 Dehydration; E87.6 Hypokalemia; I10 Essential (primary) hypertension; I48.0 Paroxysmal atrial fibrillation; E03.9 Hypothyroidism, unspecified; Z87.891 Personal history of nicotine dependence; F32.A Depression, unspecified; R62.7 Adult failure to thrive; Z93.3 Colostomy status; L89.302 Pressure ulcer of unspecified buttock, stage 2; Z75.1 Person awaiting admission to adequate facility elsewhere; Z68.26 Body mass index [BMI] 26.0-26.9, adult
CPT/HCPCS: 70450; 71045; 71046; 74177; 80048; 80053; 81003; 81015; 82306; 82330; 82570; 82784; 82805; 82962; 83519; 83521; 83605; 83735; 83880; 83970; 84100; 84155; 84156; 84165; 84300; 84439; 84443; 84484; 85025; 85027; 85610; 86334; 86335; 87040; 87070; 87086; 93005; 94640; 95816; 96365; 97110; 97163; 97167; 97530; 97535; 99291; J0630; J2430; Q9967